=== PATIENT | female | born 1970 | race Caucasian/White ===

== ENCOUNTER 2017-05-10 16:28 | Emergency (ER) | payer MEDICAID ==
[2017-05-10 16:51] VITALS: BP 167/89
--- NOTE | 2017-05-10 17:35 | EDM.PDOC ---
ED HPI GENERAL MEDICAL PROBLEM - General Chief Complaint: General Stated Complaint: DROOLING,SLURRED SPEECH Time Seen by Provider: 05/10/17 17:16 Source of Information: Reports: Patient, RN Notes Reviewed History Limitations: Reports: No Limitations - History of Present Illness INITIAL COMMENTS - FREE TEXT/NARRATIVE: 46-year-old female presents emergency department today with complaint of 2 issues one is intermittent slurred speech, chest pain and excessive salivation with drooling out of the right side of her mouth, these issues have been going on for about 3 weeks she did try and get an appointment at the clinic today however they recommend she go to the emergency department for further evaluation , she is asymptomatic at this time Back Pain Score (Numeric/FACES): 4 - Related Data Allergies Allergy/AdvReac Type Severity Reaction Status Date / Time amoxicillin [Amoxicillin] Allergy Rash Verified 05/10/17 16:57 codeine Allergy Cannot Verified 05/10/17 16:57 Remember fluoxetine [From Prozac] Allergy Swollen Verified 05/10/17 16:57 Tongue Penicillins Allergy Rash Verified 05/10/17 16:57 Sulfa (Sulfonamide Allergy Rash Verified 05/10/17 16:57 Antibiotics) Home Meds: Home Meds ALPRAZolam [Xanax] 1 tab PO QID PRN 08/17/13 [History] ARIPiprazole [Abilify] 30 mg PO DAILY 08/17/13 [History] Levothyroxine 112 mcg PO DAILY 03/14/14 [History] Cyclobenzaprine [Flexeril] 10 mg PO TID PRN 04/20/15 [History] Temazepam [Restoril] 30 mg PO DAILY 09/06/15 [History] Acetaminophen [Tylenol Extra Strength] 2 tab PO Q6H PRN 04/05/17 [History] Albuterol [Proventil HFA] 2 inh INH Q4H PRN 04/08/17 [History] Cetirizine HCl [Zyrtec] 10 mg PO DAILY 04/08/17 [History] FLUoxetine HCl [Prozac] 40 mg PO DAILY 04/08/17 [History] NIFEdipine [Adalat cc] 1 tab PO DAILY 04/08/17 [History] Naproxen [Naprosyn] 1 tab PO BID 04/08/17 [History] Nystatin [Nystatin Crm] 15 gm TOP BID 04/08/17 [History] SUMAtriptan [Imitrex] 25 mg PO DAILY PRN 04/08/17 [History] Triamcinolone Acetonide [Kenalog 0.1% Crm] 1 strip TOP BID 04/08/17 [History] Magnesium 30 mg PO DAILY 05/10/17 [History] Past Medical History HEENT History: Reports: Cataract, Impaired Vision Cardiovascular History: Reports: Hypertension Musculoskeletal History: Reports: Other (See Below) Other Musculoskeletal History: left shoulder pain Neurological History: Reports: Migraines Psychiatric History: Reports: Anxiety, Depression Endocrine/Metabolic History: Reports: Obesity/BMI 30+ Other Dermatologic History: open wound abdomen - Past Surgical History GI Surgical History: Reports: Bariatric Procedure, Cholecystectomy Other GI Surgeries/Procedures: 09/10/15 revision Female Surgical History: Reports: Hysterectomy Social & Family History - Tobacco Use Smoking Status *Q: Never Smoker Second Hand Smoke Exposure: No - Caffeine Use Caffeine Use: Reports: Coffee, Soda - Alcohol Use Days Per Week of Alcohol Use: 1 Number of Drinks Per Day: 2 Total Drinks Per Week: 2 - Recreational Drug Use Recreational Drug Use: No ED ROS GENERAL - Review of Systems Review Of Systems: See Below Constitutional: Reports: No Symptoms HEENT: Reports: No Symptoms Respiratory: Reports: No Symptoms Cardiovascular: Reports: Chest Pain GI/Abdominal: Reports: Other (excessive salivation) : Reports: No Symptoms Musculoskeletal: Reports: No Symptoms Skin: Reports: No Symptoms Neurological: Reports: Trouble Speaking, Other (slurred speech) ED EXAM, GENERAL - Physical Exam Exam: See Below Free Text/Narrative:: General: female, not in any distress, alert and oriented x3 HEENT: head is atraumatic normocephalic, eyes pupils equal round reactive to light, sclera clear no conjunctivitis appreciated. Ears tympanic membranes clear and vaz landmarks and light reflex are present bilaterally canals are clear. Nose no septal deviation, nares are clear, no blood present. Mouth mucosa is moist and pink no erythema or exudate noted in soft palate, tongue is midline uvula is midline, dentition is intact. Neck: Supple no thyromegaly no tracheal deviation. Nodes: Cervical nodes subclavicular nodes nontender no palpable lymphadenopathy noted. Lungs: clear to auscultation bilaterally with symmetrical respirations, no adventitious noise appreciated. CV: Regular rate and rhythm S1 and S2 appreciated no murmurs rubs or gallops noted. Abdomen: Soft, nontender, no palpable masses or organomegaly appreciated, no distention no guarding bowel sounds are present, [scars ]. Neuro: Cranial nerves II through XII grossly intact, power is 5 out 5 in upper and lower extremities, can do finger to nose without difficulty no dysdiadochokinesis no difficulty with rapid alternating movements c , has adequate gait can do heel to toe, c no cerebellar dysfunction no focal neurologic deficit Skin: Warm and dry, intact Extremities: No lower extremity edema appreciated, pedal pulse is +2. Course - Vital Signs Last Recorded V/S: Last Vital Signs Temp 97.6 F 05/10/17 16:46 Pulse 78 05/10/17 16:46 Resp 16 05/10/17 16:46 BP 167/89 H 05/10/17 16:46 Pulse Ox 98 05/10/17 16:46 Departure - Departure Time of Disposition: 17:34 Disposition: Home, Self-Care 01 Condition: Good Clinical Impression: Medication side effects Qualifiers: Encounter type: initial encounter Qualified Code(s): T88.7XXA - Unspecified adverse effect of drug or medicament, initial encounter - Discharge Information Forms: ED Department Discharge Additional Instructions: please follow-up with your mental health provider for reevaluation recommend discontinuing the Xanax - Assessment/Plan Plan: Assessment Acuity = acute Site and laterality = hypersalivation, chest pain, slurred speech, all intermittent Etiology = probable side effects of Xanax Manifestations = none Location of injury = home Lab values = none Plan I did review the side effect profile with her for Xanax, I did offer her further evaluation blood work and image studies she declined she preferred follow up with her mental health provider if she is going to discontinue her Xanax until she can review her medication profile with her mental health provider Patient was in agreement with the plan all questions were answered, they were instructed to return to the emergency department or call for worsening symptoms. This note was dictated using [employer] voice recognition software please call with any questions.
== END 2017-05-10 17:52 | disposition home or self-care (01) ==
LOC: JP.ED 16:28
DX: R47.81 Slurred speech (principal); T88.7XXA Unspecified adverse effect of drug or medicament, initial encounter; I10 Essential (primary) hypertension; G43.909 Migraine, unspecified, not intractable, without status migrainosus; F41.9 Anxiety disorder, unspecified; F32.9 Major depressive disorder, single episode, unspecified; E66.9 Obesity, unspecified; Z90.49 Acquired absence of other specified parts of digestive tract; Z79.899 Other long term (current) drug therapy; Z90.710 Acquired absence of both cervix and uterus; Z98.84 Bariatric surgery status; Z98.890 Other specified postprocedural states; Z88.5 Allergy status to narcotic agent; Z88.2 Allergy status to sulfonamides; Z88.0 Allergy status to penicillin; Z88.8 Allergy status to other drugs, medicaments and biological substances
CPT/HCPCS: 99282; 99285

== ENCOUNTER 2017-07-19 18:48 | Emergency (ER) | payer MEDICAID ==
--- NOTE | 2017-07-19 20:03 | EDM.PDOC ---
ED HPI GENERAL MEDICAL PROBLEM - General Chief Complaint: Skin Complaint Stated Complaint: RASH ON BACK Time Seen by Provider: 07/19/17 19:57 Source of Information: Reports: Patient History Limitations: Reports: No Limitations - History of Present Illness INITIAL COMMENTS - FREE TEXT/NARRATIVE: Pt noted burning to back earlier today. Now has gotten worse. 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 No new stressors. Immunizations are current. Onset: Today, Sudden Onset Date: 07/19/17 Duration: Getting Worse Location: Reports: Back Quality: Reports: Burning Severity: Mild Improves with: Reports: None Worsens with: Reports: None Associated Symptoms: Reports: No Other Symptoms Back Pain Score (Numeric/FACES): 4 - Related Data Allergies Allergy/AdvReac Type Severity Reaction Status Date / Time amoxicillin [Amoxicillin] Allergy Rash Verified 07/19/17 19:38 codeine Allergy Cannot Verified 07/19/17 19:38 Remember fluoxetine [From Prozac] Allergy Swollen Verified 07/19/17 19:38 Tongue Penicillins Allergy Rash Verified 07/19/17 19:38 Sulfa (Sulfonamide Allergy Rash Verified 07/19/17 19:38 Antibiotics) Home Meds: Home Meds ALPRAZolam [Xanax] 1 tab PO QID PRN 08/17/13 [History] ARIPiprazole [Abilify] 30 mg PO DAILY 08/17/13 [History] Levothyroxine 112 mcg PO DAILY 03/14/14 [History] Cyclobenzaprine [Flexeril] 10 mg PO TID PRN 04/20/15 [History] Temazepam [Restoril] 30 mg PO DAILY 09/06/15 [History] Acetaminophen [Tylenol Extra Strength] 2 tab PO Q6H PRN 04/05/17 [History] Albuterol [Proventil HFA] 2 inh INH Q4H PRN 04/08/17 [History] Cetirizine HCl [Zyrtec] 10 mg PO DAILY 04/08/17 [History] FLUoxetine HCl [Prozac] 40 mg PO DAILY 04/08/17 [History] NIFEdipine [Adalat cc] 1 tab PO DAILY 04/08/17 [History] Naproxen [Naprosyn] 1 tab PO BID 04/08/17 [History] Nystatin [Nystatin Crm] 15 gm TOP BID 04/08/17 [History] SUMAtriptan [Imitrex] 25 mg PO DAILY PRN 04/08/17 [History] Triamcinolone Acetonide [Kenalog 0.1% Crm] 1 strip TOP BID 04/08/17 [History] Magnesium 30 mg PO DAILY 05/10/17 [History] Past Medical History HEENT History: Reports: Cataract, Impaired Vision Cardiovascular History: Reports: Hypertension Musculoskeletal History: Reports: Other (See Below) Other Musculoskeletal History: left shoulder pain Neurological History: Reports: Migraines Psychiatric History: Reports: Anxiety, Depression Endocrine/Metabolic History: Reports: Obesity/BMI 30+ Other Dermatologic History: open wound abdomen - Infectious Disease History Infectious Disease History: Reports: Chicken Pox - Past Surgical History GI Surgical History: Reports: Bariatric Procedure, Cholecystectomy Other GI Surgeries/Procedures: 09/10/15 revision Female Surgical History: Reports: Hysterectomy Social & Family History - Tobacco Use Smoking Status *Q: Never Smoker Second Hand Smoke Exposure: No - Caffeine Use Caffeine Use: Reports: Soda - Alcohol Use Days Per Week of Alcohol Use: 1 Number of Drinks Per Day: 2 Total Drinks Per Week: 2 - Recreational Drug Use Recreational Drug Use: No ED ROS GENERAL - Review of Systems Review Of Systems: See Below Constitutional: Reports: No Symptoms HEENT: Reports: No Symptoms Respiratory: Reports: No Symptoms Cardiovascular: Reports: No Symptoms GI/Abdominal: Reports: No Symptoms Musculoskeletal: Reports: Other (achiness) Skin: Reports: Rash, Urticaria Neurological: Reports: No Symptoms ED EXAM, SKIN/RASH Exam: See Below Exam Limited By: No Limitations General Appearance: Alert, WD/WN, No Apparent Distress Respiratory/Chest: No Respiratory Distress, Lungs Clear, Normal Breath Sounds, No Accessory Muscle Use, Chest Non-Tender Cardiovascular: Normal Peripheral Pulses, Regular Rate, Rhythm, No Edema, No Gallop, No JVD, No Murmur, No Rub Skin: Zoster-Like Rash (to right midback, in early stages) Location, Skin: Back Characteristics: Vesicular Associated features: Warmth, Tenderness Lymphatic: No Adenopathy Course - Vital Signs Last Recorded V/S: Last Vital Signs Temp 96.8 F 07/19/17 19:42 Pulse 75 07/19/17 19:42 Resp 16 07/19/17 19:42 BP 158/86 H 07/19/17 19:42 Pulse Ox 99 07/19/17 19:42 Departure - Departure Time of Disposition: 20:03 Disposition: Home, Self-Care 01 Condition: Good Clinical Impression: Herpes zoster Qualifiers: Herpes zoster complications: without complications Qualified Code(s): B02.9 - Zoster without complications - Discharge Information Instructions: Shingles, [id number] Referrals: Viktor Sam MD [Primary Care Provider] - Additional Instructions: Pt to take Valtrex 1gm TID x 7 days. Contact precautions discussed. Abreva prn topically. Followup if pain persists. - Problem List & Annotations (1) Herpes zoster SNOMED Code(s): 3736815 Code(s): B02.9 - ZOSTER WITHOUT COMPLICATIONS Status: Acute Priority: Low Current Visit: Yes Qualifiers: Herpes zoster complications: without complications Qualified Code(s): B02.9 - Zoster without complications
[2017-07-19] MEDS ORDERED: valACYclovir 1,000 MG Tab PO SCH (20:15)
[2017-07-19 21:30] VITALS: BP 158/86
== END 2017-07-19 20:14 | disposition home or self-care (01) ==
LOC: JP.ED 18:48
DX: B02.9 Zoster without complications (principal); I10 Essential (primary) hypertension; G43.909 Migraine, unspecified, not intractable, without status migrainosus; F41.9 Anxiety disorder, unspecified; F32.9 Major depressive disorder, single episode, unspecified; E66.9 Obesity, unspecified; Z98.84 Bariatric surgery status; Z90.49 Acquired absence of other specified parts of digestive tract; Z79.899 Other long term (current) drug therapy; Z88.1 Allergy status to other antibiotic agents; Z88.5 Allergy status to narcotic agent; Z88.0 Allergy status to penicillin; Z88.2 Allergy status to sulfonamides
CPT/HCPCS: 99283; A9270

== ENCOUNTER 2017-10-09 19:10 | Emergency (ER) | payer MEDICAID ==
[2017-10-09 19:43] VITALS: BP 150/93
[2017-10-09] MEDS ORDERED: valACYclovir 1,000 MG Tab PO STA (20:09)
--- NOTE | 2017-10-09 20:13 | EDM.PDOC ---
ED HPI GENERAL MEDICAL PROBLEM - General Chief Complaint: Skin Complaint Stated Complaint: POSSIBLE SHINGLES Time Seen by Provider: 10/09/17 20:06 Source of Information: Reports: Patient, RN Notes Reviewed History Limitations: Reports: No Limitations - History of Present Illness INITIAL COMMENTS - FREE TEXT/NARRATIVE: 47-year-old female presents emergency department day complaint of rash she has had outbreak of shingles multiple times throughout her life last was this summer this particular one started couple days ago was probably on her right shoulder Right Posterior Shoulder Pain Score (Numeric/FACES): 1 - Related Data Allergies Allergy/AdvReac Type Severity Reaction Status Date / Time amoxicillin [Amoxicillin] Allergy Rash Verified 10/09/17 19:44 codeine Allergy Cannot Verified 10/09/17 19:44 Remember fluoxetine [From Prozac] Allergy Swollen Verified 10/09/17 19:44 Tongue Penicillins Allergy Rash Verified 10/09/17 19:44 Sulfa (Sulfonamide Allergy Rash Verified 10/09/17 19:44 Antibiotics) Home Meds: Home Meds ALPRAZolam [Xanax] 1 tab PO QID PRN 08/17/13 [History] ARIPiprazole [Abilify] 30 mg PO DAILY 08/17/13 [History] Levothyroxine 112 mcg PO DAILY 03/14/14 [History] Cyclobenzaprine [Flexeril] 10 mg PO TID PRN 04/20/15 [History] Temazepam [Restoril] 30 mg PO DAILY 09/06/15 [History] Acetaminophen [Tylenol Extra Strength] 2 tab PO Q6H PRN 04/05/17 [History] Cetirizine HCl [Zyrtec] 10 mg PO DAILY 04/08/17 [History] FLUoxetine HCl [Prozac] 40 mg PO DAILY 04/08/17 [History] NIFEdipine [Adalat cc] 1 tab PO DAILY 04/08/17 [History] Naproxen [Naprosyn] 1 tab PO BID 04/08/17 [History] Nystatin [Nystatin Crm] 15 gm TOP BID 04/08/17 [History] SUMAtriptan [Imitrex] 25 mg PO DAILY PRN 04/08/17 [History] Triamcinolone Acetonide [Kenalog 0.1% Crm] 1 strip TOP BID 04/08/17 [History] Magnesium 30 mg PO DAILY 05/10/17 [History] Past Medical History HEENT History: Reports: Cataract, Impaired Vision Cardiovascular History: Reports: Hypertension Musculoskeletal History: Reports: Other (See Below) Other Musculoskeletal History: left shoulder pain Neurological History: Reports: Migraines Psychiatric History: Reports: Anxiety, Depression Endocrine/Metabolic History: Reports: Obesity/BMI 30+ Other Dermatologic History: open wound abdomen - Infectious Disease History Infectious Disease History: Reports: Chicken Pox - Past Surgical History GI Surgical History: Reports: Bariatric Procedure, Cholecystectomy Other GI Surgeries/Procedures: 09/10/15 revision Female Surgical History: Reports: Hysterectomy Social & Family History - Tobacco Use Smoking Status *Q: Former Smoker Used Tobacco, but Quit: Yes Month Tobacco Last Used: 5 years Second Hand Smoke Exposure: No - Caffeine Use Caffeine Use: Reports: Coffee, Soda - Alcohol Use Days Per Week of Alcohol Use: 1 Number of Drinks Per Day: 2 Total Drinks Per Week: 2 - Recreational Drug Use Recreational Drug Use: No ED ROS GENERAL - Review of Systems Review Of Systems: See Below Constitutional: Reports: No Symptoms Skin: Reports: Rash ED EXAM, SKIN/RASH Exam: See Below Text/Narrative:: Examination of the integument area over the right shoulder she does have several small vesicles that are erupted with open ulcers distribution is in the C5 region consistent with zoster type rash Exam Limited By: No Limitations General Appearance: Alert, WD/WN, No Apparent Distress Course - Vital Signs Last Recorded V/S: Last Vital Signs Temp 97.7 F 10/09/17 19:38 Pulse 69 10/09/17 19:38 Resp 18 10/09/17 19:38 BP 150/93 H 10/09/17 19:38 Pulse Ox 96 10/09/17 19:38 - Orders/Labs/Meds Orders: Active Orders 24 hr Category Date Time Status valACYclovir [Valtrex] Med 10/09/17 20:09 Stat 1,000 mg PO NOW STA Departure - Departure Time of Disposition: 20:12 Disposition: Home, Self-Care 01 Condition: Good Clinical Impression: Herpes zoster Qualifiers: Herpes zoster complications: without complications Qualified Code(s): B02.9 - Zoster without complications - Discharge Information Referrals: Viktor Sam MD [Primary Care Provider] - Additional Instructions: of take full course of antiviral, Please followup with your primary care provider in 5-7 days if not better, please call return to the emergency department with worsening of symptoms. - My Orders Last 24 Hours: My Active Orders 10/09/17 20:09 valACYclovir [Valtrex] 1,000 mg PO NOW STA - Assessment/Plan Last 24 Hours: My Active Orders 10/09/17 20:09 valACYclovir [Valtrex] 1,000 mg PO NOW STA Plan: Assessment Acuity = acute Site and laterality = shingles Etiology = varicella-zoster Manifestations = none Location of injury = Home Lab values = none Plan Given 1 dose Valtrex now prescription written for Valtrex thousand milligrams by mouth 3 times a day 7 days follow-up with primary care in 5-7 days if no improvement Patient was in agreement with the plan all questions were answered, they were instructed to return to the emergency department or call for worsening symptoms. This note was dictated using [employer] voice recognition software please call with any questions.
== END 2017-10-09 20:30 | disposition home or self-care (01) ==
LOC: JP.ED 19:10
DX: B02.9 Zoster without complications (principal); I10 Essential (primary) hypertension; Z87.891 Personal history of nicotine dependence; Z88.5 Allergy status to narcotic agent; Z88.1 Allergy status to other antibiotic agents; Z88.2 Allergy status to sulfonamides
CPT/HCPCS: 99283; A9270

== ENCOUNTER 2019-02-19 07:55 | Emergency (ER) | payer MEDICAID ==
[2019-02-19 08:27] VITALS: BP 124/84
--- NOTE | 2019-02-19 08:47 | EDM.PDOC ---
ED HPI GENERAL MEDICAL PROBLEM - General Chief Complaint: Fever Stated Complaint: CHEST COLD HEADACHE Time Seen by Provider: 02/19/19 08:30 Source of Information: Reports: Patient History Limitations: Reports: No Limitations - History of Present Illness Onset: Gradual (three day history) Location: Reports: Head (headache for past three days, rates pain 2/10, occas. flushing feeling. ) Quality: Reports: Ache Improves with: Reports: None Worsens with: Reports: None Associated Symptoms: Reports: Malaise (states has finished a ten day stretch of work days. ) Treatments HANDY MAN: Reports: Acetaminophen Headache Pain Score (Numeric/FACES): 3 - Related Data Allergies Allergy/AdvReac Type Severity Reaction Status Date / Time amoxicillin [Amoxicillin] Allergy Rash Verified 02/01/19 11:54 codeine Allergy Cannot Verified 02/01/19 11:54 Remember fluoxetine [From Prozac] Allergy Swollen Verified 02/01/19 11:54 Tongue Penicillins Allergy Rash Verified 02/01/19 11:54 Sulfa (Sulfonamide Allergy Rash Verified 02/01/19 11:54 Antibiotics) valacyclovir [From Valtrex] Allergy Rash Verified 02/01/19 11:54 Home Meds: Home Meds ALPRAZolam [Xanax] 1 tab PO QID PRN 08/17/13 [History] ARIPiprazole [Abilify] 20 mg PO DAILY 08/17/13 [History] Levothyroxine 112 mcg PO DAILY 03/14/14 [History] Cyclobenzaprine [Flexeril] 10 mg PO TID PRN 04/20/15 [History] Temazepam [Restoril] 30 mg PO DAILY 09/06/15 [History] Acetaminophen [Tylenol Extra Strength] 2 tab PO Q6H PRN 04/05/17 [History] Naproxen [Naprosyn] 1 tab PO BID PRN 04/08/17 [History] Nystatin [Nystatin Crm] 15 gm TOP BID PRN 04/08/17 [History] SUMAtriptan [Imitrex] 25 mg PO DAILY PRN 04/08/17 [History] Triamcinolone Acetonide [Kenalog 0.1% Crm] 1 applic TOP BID PRN 04/08/17 [ History] hydroCHLOROthiazide [Hydrochlorothiazide] 50 mg PO DAILY 10/16/18 [History] Citalopram [Citalopram HBr] 20 mg PO DAILY 11/30/18 [History] Ferrous Fumarate/Vitamin C [Vitron-C] 1 tab PO DAILY 11/30/18 [History] Gabapentin [Neurontin] 300 mg PO BID 11/30/18 [History] Naltrexone 25 mg PO BID 01/04/19 [History] Past Medical History HEENT History: Reports: Cataract, Impaired Vision Cardiovascular History: Reports: Hypertension Musculoskeletal History: Reports: Other (See Below) Other Musculoskeletal History: left shoulder pain Neurological History: Reports: Migraines Psychiatric History: Reports: Anxiety, Depression Endocrine/Metabolic History: Reports: Obesity/BMI 30+ Dermatologic History: Reports: Other (See Below) Other Dermatologic History: shingles - Infectious Disease History Infectious Disease History: Reports: Chicken Pox - Past Surgical History GI Surgical History: Reports: Bariatric Procedure, Cholecystectomy Other GI Surgeries/Procedures: 09/10/15 revision Female Surgical History: Reports: Hysterectomy Social & Family History - Tobacco Use Smoking Status *Q: Never Smoker - Caffeine Use Caffeine Use: Reports: Soda - Recreational Drug Use Recreational Drug Use: No ED ROS GENERAL - Review of Systems Review Of Systems: See Below Constitutional: Reports: No Symptoms HEENT: Reports: No Symptoms Respiratory: Reports: Other (complains of tightness of chest and pain on both inspiration and expiration) Endocrine: Reports: Fatigue (states has been tired of late, slept most of yesterday - states it was a day of catching up on sleep. ) : Reports: No Symptoms (denies changes to bowels or bladder or nausea. States urine is darker than normal, but admits to decreased fluid intake in past few days. ) Musculoskeletal: Reports: No Symptoms Skin: Reports: No Symptoms Neurological: Reports: No Symptoms, Headache (12/25, not like a mirgraine which she has had) Psychiatric: Reports: No Symptoms Hematologic/Lymphatic: Reports: No Symptoms Immunologic: Reports: Seasonal Allergy (taking Zyrtec-D as per usual this time of year) ED EXAM, GENERAL - Physical Exam Exam: See Below Exam Limited By: No Limitations General Appearance: Alert, WD/WN, No Apparent Distress, Other (seems a little flat in affect. States has been taking prescribed depression meds and following up with Gisell ([facility]IST[facility] psych in clinic) regularly and doesn't feel there are issues. ) Eye Exam: Bilateral Eye: EOMI, PERRL Ears: Normal External Exam, Normal Canal, Hearing Grossly Normal, Normal TMs Nose: Normal Inspection, Normal Mucosa, No Blood Throat/Mouth: Normal Inspection, Normal Lips, Normal Teeth, Normal Gums, Normal Oropharynx, Normal Voice, No Airway Compromise Head: Atraumatic, Normocephalic, Other Neck: Normal Inspection Respiratory/Chest: No Respiratory Distress, Lungs Clear, Normal Breath Sounds, No Accessory Muscle Use, Chest Non-Tender Cardiovascular: Regular Rate, Rhythm, No Edema, No Murmur, No Rub GI/Abdominal: Normal Bowel Sounds, Soft, Non-Tender, No Distention, No Abnormal Bruit Back Exam: Normal Inspection, Full Range of Motion Extremities: Normal Inspection, Normal Range of Motion, Non-Tender, No Pedal Edema Neurological: Alert, Oriented, Normal Cognition, No Motor/Sensory Deficits Psychiatric: Normal Mood, Other (flat affect; tired) Skin Exam: Warm, Dry, Intact, Normal Color, No Rash, Other (no flushing, no diaphoresis) Lymphatic: No Adenopathy Course - Vital Signs Last Recorded V/S: Last Vital Signs Temp 34.5 C L 02/19/19 08:18 Pulse 74 02/19/19 08:18 Resp 12 02/19/19 08:18 BP 124/84 02/19/19 08:18 Pulse Ox 100 02/19/19 08:18 - Orders/Labs/Meds Orders: CBC ordered Labs: Laboratory Tests 02/19/19 Range/Units 08:40 WBC 4.5 (4.5-11.0) K/uL RBC 4.95 (3.30-5.50) M/uL Hgb 13.8 D (12.0-15.0) g/dL Hct 40.9 (36.0-48.0) % MCV 83 (80-98) fL MCH 28 (27-31) pg MCHC 34 (32-36) % Plt Count 151 (150-400) K/uL Neut % (Auto) 69 H (36-66) % Lymph % (Auto) 11 L (24-44) % Baxter % (Auto) 12 H (2-6) % Eos % (Auto) 8 H (2-4) % Baso % (Auto) 0 (0-1) % Departure - Departure Time of Disposition: 08:59 Disposition: Home, Self-Care 01 Condition: Good Clinical Impression: Headache - Discharge Information *PRESCRIPTION DRUG MONITORING PROGRAM REVIEWED*: No *COPY OF PRESCRIPTION DRUG MONITORING REPORT IN PATIENT SOPHIE: No Instructions: General Headache Without Cause Referrals: Viktor Sam MD [Primary Care Provider] - Forms: ED Department Discharge Additional Instructions: Discussed with patient that headache probably result of viral syndrome and long stretch of work days and decreased fluid intake that she admits to. Long discussion about benefits of regular exercise and stable sleep habits and importance of adequate hydration as contributing to overall health. Patient will try to increase water intake over next few days and monitor caffeine intake to see if this contributes to headache. Asked to take her naproxen today alternating with the Tylenol to see if this will take away her headache pain. To follow up with her care provider if symptoms don't resolve or increase in next few days.
== END 2019-02-19 09:09 | disposition home or self-care (01) ==
LOC: JP.ED 07:55
DX: R51 Headache (principal); I10 Essential (primary) hypertension; F41.9 Anxiety disorder, unspecified; F32.9 Major depressive disorder, single episode, unspecified; Z88.1 Allergy status to other antibiotic agents; Z88.0 Allergy status to penicillin; Z88.2 Allergy status to sulfonamides; Z79.899 Other long term (current) drug therapy; Z88.5 Allergy status to narcotic agent
CPT/HCPCS: 36415; 85025; 99283

== ENCOUNTER 2019-02-22 17:51 | Emergency (ER) | payer MEDICAID ==
[2019-02-22 18:24] VITALS: BP 128/82
[2019-02-22] MEDS ORDERED: Iopamidol 612 MG/ML 150 ML Bottle IV SCH (18:30)
[2019-02-22] MEDS ORDERED: Sodium Chloride 0.9% 80 ML IV SCH (18:30)
[2019-02-22] MEDS ORDERED: NS + KCl 20mEq/L 1,000 ML IV SCH (18:30)
[2019-02-22] MEDS ORDERED: Ondansetron 4 MG Tab.DIS PO ONE (18:52)
[2019-02-22] MEDS ORDERED: Ketorolac 30 MG/ML SDV IVPUSH ONE (18:53)
[2019-02-22] MEDS: Sodium Chloride 0.9% 10 ML Syringe FLUSH PRN ×2 (18:55→19:03)
--- NOTE | 2019-02-22 19:23 | EDM.PDOC ---
ED HPI GENERAL MEDICAL PROBLEM - General Chief Complaint: Abdominal Pain Stated Complaint: ABDOMINAL PAIN Time Seen by Provider: 02/22/19 19:00 Source of Information: Reports: Patient, Old Records, RN History Limitations: Reports: No Limitations - History of Present Illness INITIAL COMMENTS - FREE TEXT/NARRATIVE: 48 yo female was referred from the clinic to the ER to evaluate subacute mild abdominal pain associated with elevated LFT's. She reports nausea without vomiting. Has a mild HARRIS. Shannan's complaint in the clinic was progressive fatigue over about 6 days. In the clinic LUQ tenderness was noted on exam, patient was unaware of this until her provider pushed there. The provider also noted scleral icterus which is why the LFT's were ordered. Hx of cholecystectomy about 20 yrs ago. No fever. No change in stooling. Onset: Gradual Onset Date: 02/16/19 Duration: Day(s): (6), Getting Worse Location: Reports: Generalized (fatigue) Quality: Reports: Dull (RUQ pain, only after the clinic exam, not noted before that. ) Severity: Mild Improves with: Reports: None Worsens with: Reports: Other (time) Context: Reports: Other (See HPI) Associated Symptoms: Reports: Headaches (mild now), Malaise, Nausea/Vomiting ( emesis once during the course only.). Denies: Cough, Fever/Chills, Rash, Shortness of Breath Treatments SPECIAL SERVICES DIRECTOR: Reports: Other (see below) (none) Right Upper Abdomen Pain Score (Numeric/FACES): 3 - Related Data Allergies Allergy/AdvReac Type Severity Reaction Status Date / Time amoxicillin [Amoxicillin] Allergy Rash Verified 02/22/19 18:25 codeine Allergy Cannot Verified 02/22/19 18:25 Remember fluoxetine [From Prozac] Allergy Swollen Verified 02/22/19 18:25 Tongue Penicillins Allergy Rash Verified 02/22/19 18:25 Sulfa (Sulfonamide Allergy Rash Verified 02/22/19 18:25 Antibiotics) valacyclovir [From Valtrex] Allergy Rash Verified 02/22/19 18:25 Home Meds: Home Meds ALPRAZolam [Xanax] 1 tab PO QID PRN 08/17/13 [History] ARIPiprazole [Abilify] 20 mg PO DAILY 08/17/13 [History] Levothyroxine 112 mcg PO DAILY 03/14/14 [History] Cyclobenzaprine [Flexeril] 10 mg PO TID PRN 04/20/15 [History] Temazepam [Restoril] 30 mg PO DAILY 09/06/15 [History] Acetaminophen [Tylenol Extra Strength] 2 tab PO Q6H PRN 04/05/17 [History] Naproxen [Naprosyn] 1 tab PO BID PRN 04/08/17 [History] Nystatin [Nystatin Crm] 15 gm TOP BID PRN 04/08/17 [History] SUMAtriptan [Imitrex] 25 mg PO DAILY PRN 04/08/17 [History] Triamcinolone Acetonide [Kenalog 0.1% Crm] 1 applic TOP BID PRN 04/08/17 [ History] hydroCHLOROthiazide [Hydrochlorothiazide] 50 mg PO DAILY 10/16/18 [History] Citalopram [Citalopram HBr] 20 mg PO DAILY 11/30/18 [History] Ferrous Fumarate/Vitamin C [Vitron-C] 1 tab PO DAILY 11/30/18 [History] Gabapentin [Neurontin] 300 mg PO BID 11/30/18 [History] Naltrexone 25 mg PO BID 01/04/19 [History] Past Medical History HEENT History: Reports: Cataract, Impaired Vision Cardiovascular History: Reports: Hypertension Gastrointestinal History: Reports: Cholelithiasis Musculoskeletal History: Reports: Other (See Below) Other Musculoskeletal History: left shoulder pain Neurological History: Reports: Migraines Psychiatric History: Reports: Anxiety, Depression Endocrine/Metabolic History: Reports: Obesity/BMI 30+ Dermatologic History: Reports: Other (See Below) Other Dermatologic History: shingles - Infectious Disease History Infectious Disease History: Reports: Shingles - Past Surgical History GI Surgical History: Reports: Bariatric Procedure, Cholecystectomy Other GI Surgeries/Procedures: 09/10/15 revision Female Surgical History: Reports: Hysterectomy Social & Family History - Tobacco Use Smoking Status *Q: Never Smoker - Caffeine Use Caffeine Use: Reports: Soda - Recreational Drug Use Recreational Drug Use: No ED ROS GENERAL - Review of Systems Review Of Systems: See Below Constitutional: Reports: Malaise, Fatigue. Denies: Fever, Chills HEENT: Reports: No Symptoms Respiratory: Reports: No Symptoms Cardiovascular: Reports: No Symptoms GI/Abdominal: Reports: Abdominal Pain (RUQ, mild, today only.), Nausea, Vomiting (x one). Denies: Black Stool, Bloody Stool, Diarrhea, Distension, Flatus, Hematemesis, Hematochezia, Melena : Reports: No Symptoms Musculoskeletal: Reports: No Symptoms Skin: Reports: No Symptoms Neurological: Reports: No Symptoms Psychiatric: Reports: No Symptoms ED EXAM, GI/ABD - Physical Exam Exam: See Below Exam Limited By: No Limitations General Appearance: Alert, WD/WN, No Apparent Distress, Obese, Other (Bilateral scleral icterus noted.) Eyes: Bilateral: EOMI Ears: Normal External Exam, Normal Canal, Hearing Grossly Normal, Normal TMs Nose: Normal Inspection, No Blood Throat/Mouth: Normal Inspection, Normal Lips, Normal Oropharynx, Normal Voice, No Airway Compromise Head: Atraumatic, Normocephalic Neck: Normal Inspection Respiratory/Chest: No Respiratory Distress, Lungs Clear, Normal Breath Sounds, No Accessory Muscle Use Cardiovascular: Regular Rate, Rhythm, No Edema GI/Abdominal Exam: Normal Bowel Sounds, Soft, Tender (mild RUQ tenderness). No : No Organomegaly, Distended, Guarding, Rigid, Rebound Back Exam: Normal Inspection. No: CVA Tenderness (R), CVA Tenderness (L) Extremities: Normal Inspection, Normal Range of Motion, Non-Tender, No Pedal Edema Neurological: Alert, Oriented, CN II-XII Intact, Normal Cognition, No Motor/ Sensory Deficits Psychiatric: Normal Affect, Normal Mood Skin Exam: Warm, Dry, Intact, Normal Color, No Rash Lymphatic: No Adenopathy Course - Vital Signs Text/Narrative:: Dr. Miller, [facility] Hospitalist, consulted @ . Gastroenterology @ [facility] consulted @ . Recommends transfer tonight. Last Recorded V/S: Last Vital Signs Temp 36.6 C 02/22/19 18:18 Pulse 96 02/22/19 18:18 Resp 14 02/22/19 18:18 BP 128/82 02/22/19 18:18 Pulse Ox 97 02/22/19 18:18 - Orders/Labs/Meds Orders: Active Orders 24 hr Category Date Time Status UA W/MICROSCOPIC [URIN] Stat Lab 02/22/19 18:20 Ordered Iopamidol [Isovue-300 (61%)] Med 02/22/19 18:30 Active 150 ml IV . DIRECTED NS + KCl 20mEq/L [Normal Saline with 20 mEq KCl] 1,000 Med 02/22/19 18:30 Active ml IV ASDIRECTED Sodium Chloride 0.9% [Normal Saline] 80 ml Med 02/22/19 18:30 Active IV ASDIRECTED Sodium Chloride 0.9% [Saline Flush] Med 02/22/19 18:25 Active 10 ml FLUSH ASDIRECTED PRN Medication Orders Potassium Chloride/Sodium Chloride (Normal Saline With 20 Meq Kcl) 1,000 mls @ 500 mls/hr IV ASDIRECTED ZULMA Last Admin: 02/22/19 18:44 Dose: 500 mls/hr Sodium Chloride (Normal Saline) 80 mls @ 3 mls/sec IV ASDIRECTED UZLMA Last Admin: 02/22/19 18:54 Dose: 3 mls/sec Iopamidol (Isovue-300 (61%)) 150 ml IV . DIRECTED ZULMA Last Admin: 02/22/19 18:55 Dose: 150 ml Sodium Chloride (Saline Flush) 10 ml FLUSH ASDIRECTED PRN PRN Reason: Keep Vein Open Last Admin: 02/22/19 19:03 Dose: 10 ml Admin: 02/22/19 18:55 Dose: 10 ml Meds: Medications Generic Name Dose Route Start Last Admin Trade Name Freq PRN Reason Stop Dose Admin Potassium Chloride/Sodium Chloride 1,000 mls @ 500 mls/hr 02/22/19 18:30 09/02 18:44 Normal Saline With 20 Meq Kcl IV 500 mls/hr ASDIRECTED ZULMA Administration Sodium Chloride 80 mls @ 3 mls/sec 02/22/19 18:30 02/22/19 18:54 Normal Saline IV 3 mls/sec ASDIRECTED ZULMA Administration Iopamidol 150 ml 02/22/19 18:30 02/22/19 18:55 Isovue-300 (61%) IV 150 ml . DIRECTED ZULMA Administration Sodium Chloride 10 ml 02/22/19 18:25 02/22/19 19:03 Saline Flush FLUSH 10 ml ASDIRECTED PRN Administration Keep Vein Open Discontinued Medications Generic Name Dose Route Start Last Admin Trade Name Freq PRN Reason Stop Dose Admin Ketorolac Tromethamine 15 mg 02/22/19 18:53 02/22/19 19:03 Toradol IVPUSH 02/22/19 18:54 15 mg ONETIME ONE Administration Ondansetron HCl 4 mg 02/22/19 18:52 02/22/19 19:03 Zofran Odt PO 02/22/19 18:53 4 mg ONETIME ONE Administration - Radiology Interpretation Free Text/Narrative:: CT abd/pelvis with IV contrast-intra and extra hepatic ductal dilatation. No stone seen. No other acute findings. Surgical changes from gastric bypass. CT Results Date: 02/22/19 CT Results Time: 19:45 Departure - Departure Time of Disposition: 20:10 Disposition: DC/Tfer to Acute Hospital 02 Condition: Fair Clinical Impression: Elevated LFTs, Intrahepatic bile duct dilation Fatigue Qualifiers: Fatigue type: unspecified Qualified Code(s): R53.83 - Other fatigue - Discharge Information *PRESCRIPTION DRUG MONITORING PROGRAM REVIEWED*: No *COPY OF PRESCRIPTION DRUG MONITORING REPORT IN PATIENT SOPHIE: No Referrals: Viktor Sam MD [Primary Care Provider] - Forms: ED Department Discharge Additional Instructions: Go to [facility]. NPO after midnight. - My Orders Last 24 Hours: My Active Orders 02/22/19 18:20 UA W/MICROSCOPIC [URIN] Stat 02/22/19 18:25 Sodium Chloride 0.9% [Saline Flush] 10 ml FLUSH ASDIRECTED PRN 02/22/19 18:30 Iopamidol [Isovue-300 (61%)] 150 ml IV . DIRECTED NS + KCl 20mEq/L [Normal Saline with 20 mEq KCl] 1,000 ml IV ASDIRECTED Sodium Chloride 0.9% [Normal Saline] 80 ml IV ASDIRECTED - Assessment/Plan Last 24 Hours: My Active Orders 02/22/19 18:20 UA W/MICROSCOPIC [URIN] Stat 02/22/19 18:25 Sodium Chloride 0.9% [Saline Flush] 10 ml FLUSH ASDIRECTED PRN 02/22/19 18:30 Iopamidol [Isovue-300 (61%)] 150 ml IV . DIRECTED NS + KCl 20mEq/L [Normal Saline with 20 mEq KCl] 1,000 ml IV ASDIRECTED Sodium Chloride 0.9% [Normal Saline] 80 ml IV ASDIRECTED
--- NOTE | 2019-02-22 19:26 | CRLCT ---
INDICATION: 48 year-old female. Abdominal pain. Elevated liver function tests. TECHNIQUE: Contrast-enhanced CT of the abdomen and pelvis. 150 cc nonionic Isovue-300 administered. COMPARISON: None. FINDINGS: Postsurgical change from gastric bypass. Surgically absent gallbladder. There is intra and extrahepatic biliary ductal dilatation which could be related to the postcholecystectomy state/sphincterotomy. No retained stone within the biliary tree is seen. The pancreatic duct is not dilated. No evidence for pancreatic mass or pancreatitis. Normal size spleen. Cortical lobulation of the kidneys left greater than right without hydronephrosis, stone, or solid mass. Normal caliber abdominal aorta and iliac arteries. Normal inferior vena cava. Normal appendix. No evidence for diverticular disease. Absent uterus. The urinary bladder is unremarkable. No evidence for bowel obstruction ileus and no ascites or lymphadenopathy. Thinning of the anterior abdominal wall with a small mid abdominal wall fat containing hernia. Tiny fat containing umbilical hernia. Degenerative disc disease at L5. Hypertrophic spurring of the lower thoracic spine. IMPRESSION: 1. Intra and extrahepatic biliary ductal dilatation which may reflect the post cholecystectomy state/sphincterotomy. No common bile duct stone identified. No evidence for pancreatitis or pancreatic ductal dilatation. 2. Normal appendix. No diverticular disease. Absent uterus. Postsurgical change from a gastric bypass. Please note that all CT scans at this facility use dose modulation, iterative reconstruction, and/or weight-based dosing when appropriate to reduce radiation dose to as low as reasonably achievable. Dictated by Kobi García MD @ Feb 22 2019 7:12PM Signed by Dr. Kobi García @ Feb 22 2019 7:24PM
== END 2019-02-22 20:38 ==
LOC: JP.ED 17:51
DX: K83.8 Other specified diseases of biliary tract (principal); R79.89 Other specified abnormal findings of blood chemistry; R53.83 Other fatigue; I10 Essential (primary) hypertension; F41.9 Anxiety disorder, unspecified; F32.9 Major depressive disorder, single episode, unspecified; Z79.899 Other long term (current) drug therapy; Z88.1 Allergy status to other antibiotic agents; Z88.5 Allergy status to narcotic agent
CPT/HCPCS: 74177; 81001; 96361; 96374; 99285; A9270; J1885; J3480; J7030

== ENCOUNTER 2019-05-28 15:54 | Emergency (ER) | payer MEDICAID ==
[2019-05-28 16:17] VITALS: BP 146/88; PULSE 69
--- NOTE | 2019-05-28 16:29 | EDM.PDOC ---
ED HPI GENERAL MEDICAL PROBLEM - General Chief Complaint: Skin Complaint Stated Complaint: SHINGLES Time Seen by Provider: 05/28/19 16:19 Source of Information: Reports: Patient, RN Notes Reviewed History Limitations: Reports: No Limitations - History of Present Illness INITIAL COMMENTS - FREE TEXT/NARRATIVE: 48 female presents emergency department today complaint painful rash lower back noticed yesterday that history of shingles - Related Data Allergies Allergy/AdvReac Type Severity Reaction Status Date / Time amoxicillin [Amoxicillin] Allergy Rash Verified 05/28/19 16:10 codeine Allergy Cannot Verified 05/28/19 16:10 Remember fluoxetine [From Prozac] Allergy Swollen Verified 05/28/19 16:10 Tongue Penicillins Allergy Rash Verified 05/28/19 16:10 Sulfa (Sulfonamide Allergy Rash Verified 05/28/19 16:10 Antibiotics) valacyclovir [From Valtrex] Allergy Rash Verified 05/28/19 16:10 Home Meds: Home Meds ALPRAZolam [Xanax] 1 tab PO QID PRN 08/17/13 [History] Levothyroxine 112 mcg PO DAILY 03/14/14 [History] Cyclobenzaprine [Flexeril] 10 mg PO TID PRN 04/20/15 [History] Temazepam [Restoril] 30 mg PO DAILY 09/06/15 [History] Acetaminophen [Tylenol Extra Strength] 2 tab PO Q6H PRN 04/05/17 [History] Naproxen [Naprosyn] 1 tab PO BID PRN 04/08/17 [History] Nystatin [Nystatin Crm] 15 gm TOP BID PRN 04/08/17 [History] SUMAtriptan [Imitrex] 25 mg PO DAILY PRN 04/08/17 [History] Triamcinolone Acetonide [Kenalog 0.1% Crm] 1 applic TOP BID PRN 04/08/17 [ History] hydroCHLOROthiazide [Hydrochlorothiazide] 50 mg PO DAILY 10/16/18 [History] Citalopram [Citalopram HBr] 20 mg PO DAILY 11/30/18 [History] Ferrous Fumarate/Vitamin C [Vitron-C] 1 tab PO DAILY 11/30/18 [History] Gabapentin [Neurontin] 300 mg PO BID 11/30/18 [History] Acyclovir 800 mg PO 5XDAY #35 tablet 05/28/19 [Rx] Past Medical History HEENT History: Reports: Cataract, Impaired Vision Cardiovascular History: Reports: Hypertension Gastrointestinal History: Reports: Cholelithiasis Musculoskeletal History: Reports: Other (See Below) Other Musculoskeletal History: left shoulder pain Neurological History: Reports: Migraines Psychiatric History: Reports: Anxiety, Depression Endocrine/Metabolic History: Reports: Obesity/BMI 30+ Dermatologic History: Reports: Other (See Below) Other Dermatologic History: shingles - Infectious Disease History Infectious Disease History: Reports: Shingles - Past Surgical History GI Surgical History: Reports: Bariatric Procedure, Cholecystectomy Other GI Surgeries/Procedures: 09/10/15 revision Female Surgical History: Reports: Hysterectomy Social & Family History - Tobacco Use Smoking Status *Q: Never Smoker - Caffeine Use Caffeine Use: Reports: Soda ED ROS GENERAL - Review of Systems Review Of Systems: See Below Constitutional: Reports: No Symptoms Skin: Reports: Rash, Other (Painful) ED EXAM, SKIN/RASH Exam: See Below Text/Narrative:: Examination of the back there is a small patch about size of $0.50 piece T12 region close inspection there are a few vesicles presents system varicella- zoster Exam Limited By: No Limitations General Appearance: Alert, WD/WN, No Apparent Distress Course - Vital Signs Last Recorded V/S: Last Vital Signs Temp 95.0 F L 05/28/19 16:15 Pulse 69 05/28/19 16:15 Resp 14 05/28/19 16:15 BP 146/88 H 05/28/19 16:15 Pulse Ox 99 05/28/19 16:15 Departure - Departure Time of Disposition: 16:28 Disposition: Home, Self-Care 01 Condition: Fair Clinical Impression: Shingles Qualifiers: Herpes zoster complications: without complications Qualified Code(s): B02.9 - Zoster without complications - Discharge Information Prescriptions: Acyclovir 800 mg PO 5XDAY #35 tablet Referrals: Viktor Sam MD [Primary Care Provider] - Additional Instructions: Take full course of acyclovir, your medications have been faxed to [facility], Please followup with your primary care provider in 5-7 days if not better, please call return to the emergency department with worsening of symptoms. - Assessment/Plan Plan: Assessment Acuity = acute Site and laterality = varicella-zoster exacerbation Etiology = chickenpox Manifestations = none Location of injury = Home Lab values = none Plan Take full course of acyclovir 5 times a day 7 days follow-up primary care in 5- 7 days no improvement This note was dictated using [employer] voice recognition software please call with any questions on syntax or grammar.
== END 2019-05-28 16:35 | disposition home or self-care (01) ==
LOC: JP.ED 15:54
DX: B02.9 Zoster without complications (principal); Z88.1 Allergy status to other antibiotic agents; Z88.2 Allergy status to sulfonamides; Z79.899 Other long term (current) drug therapy
CPT/HCPCS: 99282; 99283

== ENCOUNTER 2019-06-11 07:52 | Emergency (ER) | payer MEDICAID ==
[2019-06-11 08:09] VITALS: BP 134/83; PULSE 78
--- NOTE | 2019-06-11 08:26 | EDM.PDOC ---
ED HPI GENERAL MEDICAL PROBLEM - General Chief Complaint: Skin Complaint Stated Complaint: SHINGLES Time Seen by Provider: 06/11/19 08:15 Source of Information: Reports: Patient History Limitations: Reports: No Limitations - History of Present Illness INITIAL COMMENTS - FREE TEXT/NARRATIVE: 48-year-old female who is been having recurring outbreak of irritating somewhat painful blisters over the right back just lateral to the spine over the past several months. It responds to acyclovir. She does have an appointment with her primary provider in 2 days to discuss possible vaccination or other treatment. Onset: Sudden (Another outbreak over the last 24 hours) Associated Symptoms: Reports: Malaise (Slight malaise) - Related Data Allergies Allergy/AdvReac Type Severity Reaction Status Date / Time amoxicillin [Amoxicillin] Allergy Rash Verified 06/11/19 08:07 codeine Allergy Cannot Verified 06/11/19 08:07 Remember fluoxetine [From Prozac] Allergy Swollen Verified 06/11/19 08:07 Tongue Penicillins Allergy Rash Verified 06/11/19 08:07 Sulfa (Sulfonamide Allergy Rash Verified 06/11/19 08:07 Antibiotics) valacyclovir [From Valtrex] Allergy Rash Verified 06/11/19 08:07 Home Meds: Home Meds ALPRAZolam [Xanax] 1 tab PO QID PRN 08/17/13 [History] Levothyroxine 112 mcg PO DAILY 03/14/14 [History] Cyclobenzaprine [Flexeril] 10 mg PO TID PRN 04/20/15 [History] Temazepam [Restoril] 30 mg PO DAILY 09/06/15 [History] Acetaminophen [Tylenol Extra Strength] 2 tab PO Q6H PRN 04/05/17 [History] Naproxen [Naprosyn] 1 tab PO BID PRN 04/08/17 [History] Nystatin [Nystatin Crm] 15 gm TOP BID PRN 04/08/17 [History] SUMAtriptan [Imitrex] 25 mg PO DAILY PRN 04/08/17 [History] Triamcinolone Acetonide [Kenalog 0.1% Crm] 1 applic TOP BID PRN 04/08/17 [ History] hydroCHLOROthiazide [Hydrochlorothiazide] 50 mg PO DAILY 10/16/18 [History] Citalopram [Citalopram HBr] 20 mg PO DAILY 11/30/18 [History] Ferrous Fumarate/Vitamin C [Vitron-C] 1 tab PO DAILY 11/30/18 [History] Gabapentin [Neurontin] 600 mg PO TID 11/30/18 [History] Acyclovir 800 mg PO 5XDAY #35 tablet 05/28/19 [Rx] Past Medical History HEENT History: Reports: Cataract, Impaired Vision Cardiovascular History: Reports: Hypertension Gastrointestinal History: Reports: Cholelithiasis Musculoskeletal History: Reports: Other (See Below) Other Musculoskeletal History: left shoulder pain Neurological History: Reports: Migraines Psychiatric History: Reports: Anxiety, Depression Endocrine/Metabolic History: Reports: Obesity/BMI 30+ Dermatologic History: Reports: Other (See Below) Other Dermatologic History: shingles - Infectious Disease History Infectious Disease History: Reports: Shingles - Past Surgical History GI Surgical History: Reports: Bariatric Procedure, Cholecystectomy Other GI Surgeries/Procedures: 09/10/15 revision Female Surgical History: Reports: Hysterectomy Social & Family History - Tobacco Use Smoking Status *Q: Never Smoker - Caffeine Use Caffeine Use: Reports: Soda ED ROS GENERAL - Review of Systems Review Of Systems: See Below Constitutional: Denies: Fever Respiratory: Denies: Shortness of Breath, Cough GI/Abdominal: Denies: Nausea, Vomiting Neurological: Denies: Headache ED EXAM, SKIN/RASH Exam: See Below Exam Limited By: No Limitations General Appearance: Alert, No Apparent Distress Respiratory/Chest: No Respiratory Distress Skin: Warm, Dry, Other (Patient has a 4 x 4 cm area of inflammation just to the right of the spine at the lower ribs in the mid back. There is slight blister production. There are no lesions laterally around the chest.) Course - Vital Signs Last Recorded V/S: Last Vital Signs Temp 95.4 F 06/11/19 08:11 Pulse 78 06/11/19 08:11 Resp 13 06/11/19 08:11 BP 134/83 06/11/19 08:11 Pulse Ox 99 06/11/19 08:11 - Re-Assessments/Exams Free Text/Narrative Re-Assessment/Exam: 06/11/19 08:23 This patient may be having a recurring outbreak of herpes simplex and not actually shingles, however it is the same type of process and should respond to acyclovir. She was put on 400 mg 5 times a day for the next 4 days which she should take her through to her primary providers visit who can give her more if needed. Departure - Departure Time of Disposition: 08:38 Disposition: Home, Self-Care 01 Clinical Impression: Herpes simplex - Discharge Information Instructions: Tiffanie, [id number] Referrals: PCP,None [Primary Care Provider] - Forms: ED Department Discharge Care Plan Goals: Take acyclovir 5 times a day for the next 4 days, and discuss any further treatment with your primary provider on Wednesday as scheduled.
== END 2019-06-11 08:39 | disposition home or self-care (01) ==
LOC: JP.ED 07:52
DX: B00.9 Herpesviral infection, unspecified (principal); I10 Essential (primary) hypertension; F41.9 Anxiety disorder, unspecified; F32.9 Major depressive disorder, single episode, unspecified; Z79.899 Other long term (current) drug therapy; Z88.1 Allergy status to other antibiotic agents; Z88.5 Allergy status to narcotic agent
CPT/HCPCS: 99283

== ENCOUNTER 2019-07-08 19:21 | Emergency (ER) | payer MEDICAID ==
[2019-07-08 20:40] VITALS: BP 137/92
--- NOTE | 2019-07-08 21:01 | EDM.PDOC ---
ED HPI GENERAL MEDICAL PROBLEM - General Chief Complaint: ENT Problem Stated Complaint: SOARS IN MOUTH Time Seen by Provider: 07/08/19 20:45 Source of Information: Reports: Patient, Old Records History Limitations: Reports: No Limitations - History of Present Illness INITIAL COMMENTS - FREE TEXT/NARRATIVE: 48 yo female presents with sores on her the lateral edges of her tongue for the past 4 days. These sores are painful. Was to the clinic and was given an Rx for a once a day cephalosporin that is not helping so far. No other current concerns. 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: Other (see below) (cephalosporin) - Related Data Allergies Allergy/AdvReac Type Severity Reaction Status Date / Time amoxicillin [Amoxicillin] Allergy Rash Verified 06/11/19 08:07 codeine Allergy Cannot Verified 06/11/19 08:07 Remember fluoxetine [From Prozac] Allergy Swollen Verified 06/11/19 08:07 Tongue Penicillins Allergy Rash Verified 06/11/19 08:07 Sulfa (Sulfonamide Allergy Rash Verified 06/11/19 08:07 Antibiotics) valacyclovir [From Valtrex] Allergy Rash Verified 06/11/19 08:07 Home Meds: Home Meds ALPRAZolam [Xanax] 1 tab PO QID PRN 08/17/13 [History] Levothyroxine 112 mcg PO DAILY 03/14/14 [History] Cyclobenzaprine [Flexeril] 10 mg PO TID PRN 04/20/15 [History] Temazepam [Restoril] 30 mg PO DAILY 09/06/15 [History] Acetaminophen [Tylenol Extra Strength] 2 tab PO Q6H PRN 04/05/17 [History] Naproxen [Naprosyn] 1 tab PO BID PRN 04/08/17 [History] Nystatin [Nystatin Crm] 15 gm TOP BID PRN 04/08/17 [History] SUMAtriptan [Imitrex] 25 mg PO DAILY PRN 04/08/17 [History] Triamcinolone Acetonide [Kenalog 0.1% Crm] 1 applic TOP BID PRN 04/08/17 [ History] hydroCHLOROthiazide [Hydrochlorothiazide] 50 mg PO DAILY 10/16/18 [History] Citalopram [Citalopram HBr] 20 mg PO DAILY 11/30/18 [History] Ferrous Fumarate/Vitamin C [Vitron-C] 1 tab PO DAILY 11/30/18 [History] Gabapentin [Neurontin] 600 mg PO TID 11/30/18 [History] Acyclovir 800 mg PO 5XDAY #35 tablet 05/28/19 [Rx] Past Medical History HEENT History: Reports: Cataract, Impaired Vision Cardiovascular History: Reports: Hypertension Gastrointestinal History: Reports: Cholelithiasis Musculoskeletal History: Reports: Other (See Below) Other Musculoskeletal History: left shoulder pain Neurological History: Reports: Migraines Psychiatric History: Reports: Anxiety, Depression Endocrine/Metabolic History: Reports: Obesity/BMI 30+ Dermatologic History: Reports: Other (See Below) Other Dermatologic History: shingles - Infectious Disease History Infectious Disease History: Reports: Shingles - Past Surgical History GI Surgical History: Reports: Bariatric Procedure, Cholecystectomy Other GI Surgeries/Procedures: 09/10/15 revision Female Surgical History: Reports: Hysterectomy Social & Family History - Caffeine Use Caffeine Use: Reports: Soda ED ROS ENT - Review of Systems Review Of Systems: See Below Constitutional: Reports: No Symptoms HEENT: Reports: Other (sores on tongue) Respiratory: Reports: No Symptoms Skin: Reports: No Symptoms ED EXAM, ENT - Physical Exam Exam: See Below Exam Limited By: No Limitations General Appearance: Alert, WD/WN, No Apparent Distress Eye Exam: Bilateral Eye: Normal Inspection Ears: Normal External Exam, Normal Canal, Hearing Grossly Normal Nose: Normal Inspection, No Blood Mouth/Throat: Normal Lips, Normal Oropharynx, Other (canker sores on lateral edges of tongue x 2). No: Bleeding, Dental Pain, Lip Swelling, Lip Ulcers, Muffled Voice, Throat Pain, Throat Swelling, Tongue Swelling, Tonsillar Erythema , Tonsillar Exudates, Tonsillar Swelling, Uvular Deviation, Uvular Edema Head: Atraumatic, Normocephalic Neck: Normal Inspection Course - Vital Signs Last Recorded V/S: Last Vital Signs Temp 35.9 C 07/08/19 20:39 Pulse 75 07/08/19 20:39 Resp 16 07/08/19 20:39 BP 137/92 H 07/08/19 20:39 Pulse Ox 97 07/08/19 20:39 Departure - Departure Time of Disposition: 20:59 Disposition: Home, Self-Care 01 Condition: Good Clinical Impression: Canker sores oral - Discharge Information *PRESCRIPTION DRUG MONITORING PROGRAM REVIEWED*: No *COPY OF PRESCRIPTION DRUG MONITORING REPORT IN PATIENT SOPHIE: No Instructions: Canker Sores Referrals: Viktor Sam MD [Primary Care Provider] - Additional Instructions: Take ibuprofen and/or acetaminophen as needed for pain relief. Swish with water with some(10% added peroxide) several times/day. Finish your antibiotic. May use Biotin as well. Clinic follow up as needed.
== END 2019-07-08 21:18 | disposition home or self-care (01) ==
LOC: JP.ED 19:21
DX: K12.0 Recurrent oral aphthae (principal); I10 Essential (primary) hypertension; F41.9 Anxiety disorder, unspecified; F32.9 Major depressive disorder, single episode, unspecified; G43.909 Migraine, unspecified, not intractable, without status migrainosus; Z88.1 Allergy status to other antibiotic agents; Z88.8 Allergy status to other drugs, medicaments and biological substances; Z88.5 Allergy status to narcotic agent; Z88.0 Allergy status to penicillin; Z88.2 Allergy status to sulfonamides; Z79.899 Other long term (current) drug therapy
CPT/HCPCS: 99282

== ENCOUNTER 2019-09-10 18:26 | Emergency (ER) | payer MEDICAID ==
--- NOTE | 2019-09-10 18:47 | EDM.PDOC ---
ED HPI GENERAL MEDICAL PROBLEM - General Chief Complaint: Skin Complaint Stated Complaint: RED SASHA ON LEG NOT AN ACCIDENT Time Seen by Provider: 09/10/19 19:03 Source of Information: Reports: Patient History Limitations: Reports: No Limitations - History of Present Illness INITIAL COMMENTS - FREE TEXT/NARRATIVE: 49 years old female patient presented with chief complaint of bruises over the right thigh area. Noted this evening. She cannot recall any trauma or injury. No falls. Mild pain. Denies any bleeding anywhere. Denies any chest pain shortness breath. No cough or fever. Denies any abdominal pain diarrhea or constipation. Denies any urinary symptom. Right Upper Leg Pain Score (Numeric/FACES): 4 - Related Data Allergies Allergy/AdvReac Type Severity Reaction Status Date / Time amoxicillin [Amoxicillin] Allergy Rash Verified 09/10/19 18:41 codeine Allergy Cannot Verified 09/10/19 18:41 Remember fluoxetine [From Prozac] Allergy Swollen Verified 09/10/19 18:41 Tongue Penicillins Allergy Rash Verified 09/10/19 18:41 Sulfa (Sulfonamide Allergy Rash Verified 09/10/19 18:41 Antibiotics) valacyclovir [From Valtrex] Allergy Rash Verified 09/10/19 18:41 Home Meds: Home Meds ALPRAZolam [Xanax] 1 tab PO QID PRN 08/17/13 [History] Levothyroxine 100 mcg PO DAILY 03/14/14 [History] Temazepam [Restoril] 30 mg PO DAILY 09/06/15 [History] Acetaminophen [Tylenol Extra Strength] 2 tab PO Q6H PRN 04/05/17 [History] Naproxen [Naprosyn] 1 tab PO BID PRN 04/08/17 [History] Citalopram [Citalopram HBr] 20 mg PO DAILY 11/30/18 [History] Ferrous Fumarate/Vitamin C [Vitron-C] 1 tab PO DAILY 11/30/18 [History] Past Medical History HEENT History: Reports: Cataract, Impaired Vision Cardiovascular History: Reports: Hypertension Gastrointestinal History: Reports: Cholelithiasis Musculoskeletal History: Reports: Other (See Below) Other Musculoskeletal History: left shoulder pain Neurological History: Reports: Migraines Psychiatric History: Reports: Anxiety, Depression Endocrine/Metabolic History: Reports: Obesity/BMI 30+ Dermatologic History: Reports: Other (See Below) Other Dermatologic History: shingles - Infectious Disease History Infectious Disease History: Reports: Shingles - Past Surgical History HEENT Surgical History: Reports: None Cardiovascular Surgical History: Reports: None Respiratory Surgical History: Reports: None GI Surgical History: Reports: Bariatric Procedure, Cholecystectomy Other GI Surgeries/Procedures: 09/10/15 revision Female Surgical History: Reports: Hysterectomy Endocrine Surgical History: Reports: None Neurological Surgical History: Reports: None Social & Family History - Caffeine Use Caffeine Use: Reports: Soda ED ROS GENERAL - Review of Systems Review Of Systems: ROS reveals no pertinent complaints other than HPI. ED EXAM, SKIN/RASH Exam: See Below Exam Limited By: No Limitations General Appearance: Alert, WD/WN, No Apparent Distress Ears: Normal External Exam, Normal Canal, Hearing Grossly Normal, Normal TMs Nose: Normal Inspection, Normal Mucosa, No Blood Head: Atraumatic, Normocephalic Neck: Normal Inspection, Supple, Non-Tender, Full Range of Motion Respiratory/Chest: No Respiratory Distress, Lungs Clear, Normal Breath Sounds, No Accessory Muscle Use, Chest Non-Tender Cardiovascular: Normal Peripheral Pulses, Regular Rate, Rhythm, No Edema, No Gallop, No JVD, No Murmur, No Rub GI/Abdominal: Normal Bowel Sounds, Soft, Non-Tender, No Organomegaly, No Distention, No Abnormal Bruit, No Mass Extremities: Normal Inspection, Normal Range of Motion, No Pedal Edema, Normal Capillary Refill, Other (Bruises all the lateral side of the right thigh area. Mild tenderness. No erythema. No swelling.). No: Fermin's Sign Neurological: Alert, Oriented, CN II-XII Intact, Normal Cognition, Normal Gait, Normal Reflexes, No Motor/Sensory Deficits Course - Vital Signs Last Recorded V/S: Last Vital Signs Temp 36.4 C 09/10/19 18:48 Pulse 64 09/10/19 18:48 Resp 14 09/10/19 18:48 BP 150/98 H 09/10/19 18:48 Pulse Ox 96 09/10/19 18:48 - Orders/Labs/Meds Orders: Active Orders 24 hr Category Date Time Status Cardiac Monitoring [RC] .As Directed Care 09/10/19 18:55 Inactive VL Duplex Lwr Ext Veins Ltd Rt [US] Stat Exams 09/10/19 18:52 Taken Labs: Laboratory Tests 1009/10/19 09/10/19 Range/Units 19:06 19:06 19:06 WBC 4.3 L (4.5-11.0) K/uL RBC 4.71 (3.30-5.50) M/uL Hgb 13.2 (12.0-15.0) g/dL Hct 41.8 (36.0-48.0) % MCV 89 (80-98) fL MCH 28 (27-31) pg MCHC 32 (32-36) % Plt Count 192 (150-400) K/uL Neut % (Auto) 61 (36-66) % Lymph % (Auto) 29 (24-44) % Darke % (Auto) 10 H (2-6) % Eos % (Auto) 0 L (2-4) % Baso % (Auto) 0 (0-1) % PT 10.7 (9.5-12.0) sec INR 0.99 (0.80-1.20) APTT 27.5 (27.0-36.0) sec D-Dimer, Quantitative < 100 (0.0-400.0) ng/mL Sodium (140-148) mmol/L Potassium (3.6-5.2) mmol/L Chloride (100-108) mmol/L Carbon Dioxide (21-32) mmol/L Anion Gap (5.0-14.0) mmol/L BUN (7-18) mg/dL Creatinine (0.6-1.0) mg/dL Est Cr Clr Drug Dosing mL/min Estimated GFR (MDRD) (>60) Glucose (74-106) mg/dL Calcium (8.5-10.1) mg/dL 09/10/19 Range/Units 19:06 WBC (4.5-11.0) K/uL RBC (3.30-5.50) M/uL Hgb (12.0-15.0) g/dL Hct (36.0-48.0) % MCV (80-98) fL MCH (27-31) pg MCHC (32-36) % Plt Count (150-400) K/uL Neut % (Auto) (36-66) % Lymph % (Auto) (24-44) % Darke % (Auto) (2-6) % Eos % (Auto) (2-4) % Baso % (Auto) (0-1) % PT (9.5-12.0) sec INR (0.80-1.20) APTT (27.0-36.0) sec D-Dimer, Quantitative (0.0-400.0) ng/mL Sodium 140 (140-148) mmol/L Potassium 4.6 (3.6-5.2) mmol/L Chloride 106 (100-108) mmol/L Carbon Dioxide 27 (21-32) mmol/L Anion Gap 7.3 (5.0-14.0) mmol/L BUN 17 (7-18) mg/dL Creatinine 1.0 (0.6-1.0) mg/dL Est Cr Clr Drug Dosing 59.41 mL/min Estimated GFR (MDRD) 59 L (>60) Glucose 70 L (74-106) mg/dL Calcium 8.7 (8.5-10.1) mg/dL - Radiology Interpretation Free Text/Narrative:: Patient was seen and examined shortly after arrival. Stable. Lab and imaging reviewed with the patient. No significant acute abnormalities. Blood sugar is 70. Patient was given some juice. She doesn't feel any dizziness. Normal INR, PTT. Negative DVT study. No hematoma. At this point this most likely bruises of the skin she might have bumped into something. No obvious sign of bleeding disorder at this point. Patient was reassured. Advised to use some ice, Tylenol as needed. Close follow-up with PCP. Come back for any worsening symptom. Patient agrees with the plan. Stable for discharge. Departure - Departure Time of Disposition: 20:13 Disposition: Home, Self-Care 01 Condition: Good Clinical Impression: Bruise - Discharge Information *PRESCRIPTION DRUG MONITORING PROGRAM REVIEWED*: Not Applicable *COPY OF PRESCRIPTION DRUG MONITORING REPORT IN PATIENT SOPHIE: Not Applicable Referrals: Viktor Sam MD [Primary Care Provider] - Forms: ED Department Discharge Additional Instructions: Advised to use some ice, Tylenol as needed. Close follow-up with PCP i in one week for evaluation. Come back for any worsening symptom - My Orders Last 24 Hours: My Active Orders 09/10/19 18:52 VL Duplex Lwr Ext Veins Ltd Rt [US] Stat 09/10/19 18:55 Cardiac Monitoring [RC] .As Directed - Assessment/Plan Last 24 Hours: My Active Orders 09/10/19 18:52 VL Duplex Lwr Ext Veins Ltd Rt [US] Stat 09/10/19 18:55 Cardiac Monitoring [RC] .As Directed Plan: Advised to use some ice, Tylenol as needed. Close follow-up with PCP i in one week for evaluation. Come back for any worsening symptom
[2019-09-10 18:50] VITALS: BP 150/98; PULSE 64
--- NOTE | 2019-09-10 20:32 | CRLUS ---
HISTORY: Right leg pain. Ecchymoses. TECHNIQUE: Ultrasound of the right lower extremity deep veins using vaz-scale, color Doppler, and spectral Doppler. COMPARISON: None. FINDINGS: Right: Common femoral, femoral, and popliteal veins are patent and compressible with normal response to augmentation. Deep femoral vein is patent and compressible. Posterior tibial and peroneal veins are patent and compressible. Greater saphenous vein is patent and compressible at the junction with the femoral vein. - Left: Common femoral vein is patent and compressible with normal response to augmentation. IMPRESSION: No right lower extremity DVT. Dictated by Forrest Vázquez MD @ Sep 10 2019 8:28PM Signed by Dr. Forrest Vázquez @ Sep 10 2019 8:31PM
== END 2019-09-10 20:29 | disposition home or self-care (01) ==
LOC: JP.ED 18:26
DX: S70.11XA Contusion of right thigh, initial encounter (principal); F41.9 Anxiety disorder, unspecified; F32.9 Major depressive disorder, single episode, unspecified; E66.9 Obesity, unspecified; Z68.38 Body mass index [BMI] 38.0-38.9, adult; Z79.899 Other long term (current) drug therapy; Z88.0 Allergy status to penicillin; Z88.5 Allergy status to narcotic agent; Z88.2 Allergy status to sulfonamides; Z88.8 Allergy status to other drugs, medicaments and biological substances; X58.XXXA Exposure to other specified factors, initial encounter
CPT/HCPCS: 36415; 80048; 85025; 85379; 85610; 85730; 93971-RT; 99284-25

== ENCOUNTER 2020-10-15 09:11 | Day surgery (SDC) | payer MEDICAID ==
[2020-10-15] MEDS ORDERED: Cyanocobalamin (Vitamin B12) 1,000 MCG/ML SDV IM ONE (10:00)
[2020-10-15] MEDS ORDERED: Glycopyrrolate 0.2 MG/ML 2 ML SDV IVPUSH ONE (10:00)
[2020-10-15] MEDS ORDERED: Lactated Ringers 1,000 ML IV ONE (10:00)
[2020-10-15] MEDS ORDERED: fentaNYL 100 MCG/2 ML SDV ONE (10:53)
[2020-10-15] MEDS ORDERED: Midazolam 1 MG/ML 2 ML SDV ONE (10:53)
[2020-10-15] MEDS ORDERED: Propofol 200 MG/20 ML SDV ONE (10:53)
[2020-10-15] MEDS ORDERED: MVI, Adult with Vitamin K 10 ML, Thiamine 200 MG, Zinc/Copper/Manganese/Selenium 1 ML i... IV ONE ×4 (11:00)
[2020-10-15 14:40] VITALS: BP 108/66; PULSE 78
--- NOTE | 2020-10-21 12:56 | OR ---
DATE OF PROCEDURE: 10/15/2020 SURGEON: Tiago Perez MD PREOPERATIVE DIAGNOSIS: Upper abdominal pain. POSTOPERATIVE DIAGNOSIS: Upper abdominal pain with otherwise normal upper gastrointestinal endoscopy status post Itzel-en-Y gastric bypass. OPERATIVE PROCEDURE: Upper gastrointestinal endoscopy. ANESTHESIA: IV sedation. INDICATION FOR PROCEDURE: A 50-year-old female presenting with some ongoing upper abdominal pain along with some bilious vomiting. A CT scan was obtained which did show an incisional hernia located in the right upper quadrant area, which may be contributing to some of her discomfort in that region. The plan is to proceed with upper GI endoscopy with biopsies and/or dilation as indicated. Potential risks including bleeding and perforation were discussed, and the patient wishes to proceed. DETAILS OF PROCEDURE: The patient was taken to the operating room and placed in a left lateral decubitus position. IV sedation was administered, after which the upper GI endoscope was passed orally through the length of the esophagus into the gastric pouch and from there through the gastrojejunostomy roughly 20 cm into the Itzel limb. Overall, no abnormalities were noted with there being no areas of a significant inflammation, stricturing, or other problems. Scope was then withdrawn, the above findings reconfirmed, and the procedure then concluded. Given the patient's history of bilious vomiting, she probably has a partial small bowel obstruction and we will see her back in the clinic on Wednesday to discuss treatment options which would likely include limited laparotomy, lysis of adhesions, and revision of the jejunojejunostomy along with repair of the incisional hernia. Tiago Perez MD /[id number]
== END 2020-10-15 14:42 | disposition home or self-care (01) ==
LOC: JP.SDS 09:11
PROVIDERS: ATTEND Surgery
DX: R10.9 Unspecified abdominal pain (principal); I10 Essential (primary) hypertension; Z01.812 Encounter for preprocedural laboratory examination; Z20.828 Contact with and (suspected) exposure to other viral communicable diseases; Z98.84 Bariatric surgery status
CPT/HCPCS: J2250; J2704; J3010; J3411; J3420; J3490; J7120; U0002

== ENCOUNTER 2020-10-22 07:16 | Inpatient (IN) | payer MEDICAID ==
[~2020-10-22 07:16] MED LIST: Bupivacaine 0.5% 50 ML MDV ONE; Dexamethasone 4 MG/ML SDV ONE; Glycopyrrolate 0.2 MG/ML 5 ML MDV ONE; Lidocaine 1% with EPINEPHrine 1:100,000 50 ML MDV ONE; Meropenem 500 MG SDV ONE; Neostigmine Methylsulfate 1 MG/ML 5 ML Syringe ONE; Ondansetron 4 MG/2 ML SDV ONE; Propofol 200 MG/20 ML SDV ONE; Rocuronium 50 MG/5 ML Vial ONE; Succinylcholine 200 MG/10 ML MDV ONE; fentaNYL 250 MCG/5 ML SDV ONE
[2020-10-22] MEDS ORDERED: Acetaminophen 500 MG Tab PO ONE (07:30)
[2020-10-22] MEDS ORDERED: Gabapentin 300 MG Cap PO ONE (07:30)
[2020-10-22] MEDS ORDERED: Scopolamine 1.5 MG Transdermal Patch TOP SCH (08:00)
[2020-10-22] MEDS ORDERED: Naloxone 0.4 MG/ML SDV IVPUSH PRN (08:00)
[2020-10-22] MEDS ORDERED: HYDROmorphone/Normal Saline 15 MG/30 ML PCA IV PRN (08:00)
[2020-10-22] MEDS ORDERED: Albuterol/Ipratropium 3.0-0.5 MG/3 ML Neb Soln NEB ONE (08:00)
[2020-10-22] MEDS ORDERED: Dextrose 5%-Lactated Ringers 1,000 ML IV SCH (08:15)
[2020-10-22] MEDS ORDERED: Naloxone 0.4 MG/ML SDV IV PRN (09:00)
[2020-10-22] MEDS ORDERED: Magnesium Sulfate 3.3 GM in Sodium Chloride 0.9% 100 ML IV SCH (09:30)
[2020-10-22] MEDS ORDERED: Ketamine 500 MG/5 ML MDV IV SCH (09:30)
[2020-10-22] MEDS ORDERED: Ketamine 50 MG in Sodium Chloride 0.9% 49.5 ML IV SCH (09:30)
[2020-10-22] MEDS: cefOXitin 2 GM in Sodium Chloride 0.9% 50 ML IV ONE ×2 (09:36→18:36)
[2020-10-22] MEDS ORDERED: fentaNYL 250 MCG/5 ML SDV ONE (09:56)
[2020-10-22] MEDS ORDERED: hydrOXYzine HCL 100 MG/2 ML SDV IM ONE (11:49)
[2020-10-22] MEDS ORDERED: Cyclobenzaprine 10 MG Tab PO PRN (12:48)
[2020-10-22] MEDS ORDERED: Ondansetron 4 MG/2 ML SDV IVPUSH PRN (13:00)
[2020-10-22] MEDS ORDERED: Acetaminophen 500 MG Tab PO PRN (13:00)
[2020-10-22] MEDS ORDERED: Metoclopramide 10 MG/2 ML SDV IVPUSH PRN (13:00)
[2020-10-22] MEDS ORDERED: Pantoprazole 40 MG Vial IVPUSH SCH ×2 (13:00→17:00)
[2020-10-22] MEDS ORDERED: Labetalol 20 MG/4 ML Syringe IVPUSH PRN (13:00)
[2020-10-22] MEDS ORDERED: Calcium Gluconate 10% 1 GM/10 ML SDV IVPUSH PRN (13:00)
[2020-10-22] MEDS ORDERED: diphenhydrAMINE 50 MG/ML SDV IVPUSH PRN (13:00)
[2020-10-22] MEDS ORDERED: Albuterol/Ipratropium 3.0-0.5 MG/3 ML Neb Soln INH PRN (13:00)
[2020-10-22] MEDS ORDERED: hydrOXYzine HCL 100 MG/2 ML SDV IM PRN (13:00)
[2020-10-22] MEDS ORDERED: ALPRAZolam 0.5 MG Tab PO PRN (13:03)
[2020-10-22] MEDS: Sodium Ferric Gluconate Cmplex 250 MG in Sodium Chloride 0.9% 100 ML IV SCH (13:46)
[2020-10-22] MEDS: Albuterol/Ipratropium 3.0-0.5 MG/3 ML Neb Soln INH SCH ×2 (14:28→20:44)
[2020-10-22] MEDS: Acetaminophen 500 MG Tab PO SCH ×2 (15:26→23:42)
[2020-10-22] MEDS: MVI, Adult with Vitamin K 10 ML, Thiamine 200 MG, Zinc/Copper/Manganese/Selenium 1 ML i... IV SCH ×8 (15:41→18:09)
[2020-10-22] MEDS ORDERED: Benzocaine/Cetylpyridinium/Menthol Lozenge MUCMEM PRN (16:29)
[2020-10-22] MEDS: Vitamin A 100,000 Units/2 ML SDV IM SCH (16:30)
[2020-10-22] MEDS: cefOXitin 2 GM in Sodium Chloride 0.9% 50 ML IV SCH ×2 (16:41→22:48)
[2020-10-22] MEDS: Cyanocobalamin (Vitamin B12) 1,000 MCG/ML SDV IM SCH (18:41)
[2020-10-22] MEDS: Heparin Sodium 5,000 Units/ML Vial SUBCUT SCH (20:43)
[2020-10-22] MEDS: Montelukast 10 MG Tab PO SCH (20:45)
[2020-10-22] MEDS: Gabapentin 300 MG Cap PO SCH (20:45)
[2020-10-22] MEDS: Dextrose 5%-Lactated Ringers 1,000 ML IV SCH (22:03)
[2020-10-23] MEDS ORDERED: Dextrose 5%-Lactated Ringers 1,000 ML IV SCH (04:00)
[2020-10-23] MEDS: Dextrose 5%-Lactated Ringers 1,000 ML IV SCH (04:30)
[2020-10-23] MEDS: cefOXitin 2 GM in Sodium Chloride 0.9% 50 ML IV SCH ×3 (05:00→17:09)
[2020-10-23] MEDS ORDERED: Iopamidol 612 MG/ML 50 ML SDV PO STA (05:39)
[2020-10-23] MEDS: Albuterol/Ipratropium 3.0-0.5 MG/3 ML Neb Soln INH SCH ×4 (07:09→21:13)
[2020-10-23] MEDS: Levothyroxine 100 MCG Tab PO SCH (07:40)
[2020-10-23] MEDS: Heparin Sodium 5,000 Units/ML Vial SUBCUT SCH ×2 (07:40→20:01)
[2020-10-23] MEDS: Acetaminophen 500 MG Tab PO SCH ×2 (07:45→16:17)
[2020-10-23] MEDS: HYDROmorphone 2 MG Tab PO PRN ×4 (07:58→21:14)
--- NOTE | 2020-10-23 09:05 | CR ---
UGI Limited HISTORY: Postbariatric surgery FINDINGS: Patient swallowed water-soluble contrast. Upright views of the abdomen show no evidence of extravasation or obstruction. IMPRESSION: Status post bariatric surgery No extravasation or obstruction seen
[2020-10-23] MEDS: SCOPOLAMINE PATCH CHECK TOP SCH (09:06)
[2020-10-23] MEDS: Citalopram 20 MG Tab PO SCH (09:06)
[2020-10-23] MEDS: Gabapentin 300 MG Cap PO SCH ×2 (09:06→21:14)
[2020-10-23] MEDS: Celecoxib 200 MG Cap PO SCH ×2 (09:06→21:14)
--- NOTE | 2020-10-23 12:21 | PN ---
DATE OF SERVICE: 10/23/2020 SUBJECTIVE: Shannan is postoperative day #1. She has been up, ambulating. Pain has been controlled with the REHABILITATION TECH. Oral intake is 2490. Output is 2425. Her upper GI this morning was normal. REVIEW OF SYSTEMS: Remainder of review of systems negative for any pertinent positives and negatives. OBJECTIVE: GENERAL: Shannan is a pleasant 50-year-old female. She is alert and orientated. VITAL SIGNS: TPR is 97.6, 74, 16, blood pressure 110/57. HEENT: Negative. NECK: Supple. HEART: Regular rate and rhythm. LUNGS: Clear. ABDOMEN: Dressings dry and intact. Abdominal binder is on. EXTREMITIES: Without peripheral edema. ASSESSMENT: Exploratory laparotomy with lysis of adhesions. 1. Small bowel resection. 2. Repair of incarcerated incisional hernia. 3. Placement of Vicryl mesh. POSTOPERATIVE DIAGNOSES: 1. Partial small bowel obstruction at the junction of the previous jejunojejunostomy and incarcerated incisional hernia. 2. Date of procedure: 10/22/2020. Surgeon: Tiago Perez MD. PLAN: 1. Discontinue REHABILITATION TECH and continuous pulse ox. 2. Discontinue Quick catheter. 3. Step 3 gastric bypass diet. 4. Decrease IV to 40 mL/h. 5. Dilaudid 2 mg 1 to 2 every 4 hours p.r.n. pain. 6. Continue use of incentive spirometer. 7. We will evaluate p.r.n. or in a.m. Gabriela Moreland PA-C /[id number]
[2020-10-23] MEDS: Sodium Ferric Gluconate Cmplex 250 MG in Sodium Chloride 0.9% 100 ML IV SCH (12:59)
[2020-10-23] MEDS: Pantoprazole 40 MG Delayed-Release Granules 1 Packet PO SCH (16:17)
[2020-10-23] MEDS: Cyanocobalamin (Vitamin B12) 1,000 MCG/ML SDV IM SCH (16:29)
[2020-10-23] MEDS: Vitamin A 100,000 Units/2 ML SDV IM SCH (16:29)
[2020-10-23] MEDS: MVI, Adult with Vitamin K 10 ML, Thiamine 200 MG, Zinc/Copper/Manganese/Selenium 1 ML i... IV SCH ×4 (17:05)
[2020-10-23] MEDS: Montelukast 10 MG Tab PO SCH (21:14)
[2020-10-24] MEDS: Acetaminophen 500 MG Tab PO SCH ×3 (00:59→16:57)
[2020-10-24] MEDS: HYDROmorphone 2 MG Tab PO PRN ×4 (03:14→21:50)
[2020-10-24] MEDS: Albuterol/Ipratropium 3.0-0.5 MG/3 ML Neb Soln INH SCH ×4 (07:03→21:45)
[2020-10-24] MEDS: Levothyroxine 100 MCG Tab PO SCH (07:38)
[2020-10-24] MEDS: Heparin Sodium 5,000 Units/ML Vial SUBCUT SCH ×2 (07:38→19:31)
[2020-10-24] MEDS: Gabapentin 300 MG Cap PO SCH ×2 (08:51→21:47)
[2020-10-24] MEDS: Citalopram 20 MG Tab PO SCH (08:51)
[2020-10-24] MEDS: Bisacodyl 5 MG Tab PO SCH ×2 (08:51→21:47)
[2020-10-24] MEDS: Celecoxib 200 MG Cap PO SCH ×2 (08:51→21:47)
[2020-10-24] MEDS: Docusate Sodium 100 MG Cap PO SCH ×2 (08:51→21:47)
[2020-10-24] MEDS: Magnesium Hydroxide 400 MG/5 ML Susp 30 ML Cup PO SCH ×2 (08:52→21:45)
[2020-10-24] MEDS: SCOPOLAMINE PATCH CHECK TOP SCH (08:52)
--- NOTE | 2020-10-24 12:02 | PN ---
DATE OF SERVICE: 10/24/2020 SUBJECTIVE: Shannan is postoperative day 2. Her pain has been well managed. She has been up ambulating. Vital signs stable. She is not passing any flatus yet. Remainder of review of systems negative for any pertinent positives or negatives. OBJECTIVE: GENERAL: Shannan Hyde is a pleasant 50-year-old female. VITAL SIGNS: TPR is 96.5, 67, 16. Blood pressure 92/64. HEENT: Negative. NECK: Supple. HEART: Regular rate and rhythm. LUNGS: Clear. ABDOMEN: Aquacel dressing dry and intact. Abdominal binder is on. EXTREMITIES: Without peripheral edema. ASSESSMENT: 1. Exploratory laparotomy with lysis of adhesions, small bowel resection. 2. Repair of incarcerated incisional hernia. 3. Placement of Vicryl mesh. POSTOPERATIVE DIAGNOSES: Partial small bowel obstruction at the junction of the previous jejunojejunostomy and incarcerated incisional hernia. Date of procedure: 10/22/2020. Surgeon: Tiago Perez MD. PLAN: 1. Saline lock IV, if it infiltrates discontinue it. 2. Colace 100 mg b.i.d. p.o. 3. Dulcolax 10 mg b.i.d. p.o. 4. Milk of magnesia 30 mL b.i.d. 5. Continue use of incentive spirometer. 6. We will evaluate p.r.n. or in a.m. Gabriela Moreland PA-C /[id number]
[2020-10-24] MEDS: Pantoprazole 40 MG Delayed-Release Granules 1 Packet PO SCH (16:57)
[2020-10-24] MEDS: Cyanocobalamin (Vitamin B12) 1,000 MCG/ML SDV IM SCH (17:27)
[2020-10-24] MEDS: Vitamin A 100,000 Units/2 ML SDV IM SCH (17:27)
[2020-10-24] MEDS: Montelukast 10 MG Tab PO SCH (21:47)
[2020-10-25] MEDS: Acetaminophen 500 MG Tab PO SCH ×2 (01:50→07:57)
[2020-10-25] MEDS: HYDROmorphone 2 MG Tab PO PRN ×2 (03:23→07:57)
[2020-10-25] MEDS: Albuterol/Ipratropium 3.0-0.5 MG/3 ML Neb Soln INH SCH ×2 (07:10→10:44)
[2020-10-25 07:21] VITALS: BP 101/52; PULSE 64
[2020-10-25] MEDS: Levothyroxine 100 MCG Tab PO SCH (07:57)
[2020-10-25] MEDS: Heparin Sodium 5,000 Units/ML Vial SUBCUT SCH (07:57)
[2020-10-25] MEDS: Gabapentin 300 MG Cap PO SCH (09:18)
[2020-10-25] MEDS: Docusate Sodium 100 MG Cap PO SCH (09:18)
[2020-10-25] MEDS: Celecoxib 200 MG Cap PO SCH (09:19)
[2020-10-25] MEDS: Magnesium Hydroxide 400 MG/5 ML Susp 30 ML Cup PO SCH (09:19)
[2020-10-25] MEDS: Citalopram 20 MG Tab PO SCH (09:19)
[2020-10-25] MEDS: Bisacodyl 5 MG Tab PO SCH (09:19)
--- NOTE | 2020-10-25 13:00 | DISCH ---
ADMISSION DIAGNOSES: 1. Abdominal pain and incisional hernia. 2. Status post Itzel-en-Y gastric bypass surgery, unspecified surgical malabsorption. 3. B12 deficiency. 4. Vitamin D deficiency. 5. Hypertension. 6. Depression. 7. Anxiety. DISCHARGE DIAGNOSES: 1. Exploratory laparotomy with lysis of adhesions and small bowel resection. 2. Repair of incarcerated incisional hernia. 3. Placement of Vicryl mesh. POSTOPERATIVE DIAGNOSES: 1. Partial small bowel obstruction at the junction of the previous jejunostomy. 2. Incarcerated incisional hernia. Date of service of procedure, 10/22/2020. Surgeon: Tiago Perez MD. HISTORY: Shannan Hyde is a pleasant 50-year-old female with postprandial abdominal pain and incisional hernia. After preoperative evaluation and discussion of possible risks and possible complications, she wished to proceed with surgical procedure. HOSPITAL COURSE: Shannan had her surgery on 10/22/2020. She had no operative complications. On postoperative day #1, her Quick was discontinued. IV was decreased. She continued with the REAL ESTATE SITE ANALYST and was started on Step 3 gastric bypass diet. On postoperative day 2, she was given bowel stimulation, changed to oral pain medication. Her activity was good. She was up ambulating. Vital signs were stable, and she was able to be discharged to home without any complications on 10/25/2020. PHYSICAL EXAMINATION: GENERAL: Shannan Hyde is a pleasant 50-year-old female, height is 5 feet 4 inches, weight is 246 pounds. BMI is 42.2. TPR is 96.7, 64, 16; blood pressure 101/52. HEENT: Negative. NECK: Supple. HEART: Regular rate and rhythm. LUNGS: Clear. ABDOMEN: Aquacel dressing is removed. Lisandro intact. EXTREMITIES: Without peripheral edema. DISPOSITION: Discharged to home. CONDITION: Stable and improving. FOLLOWUP APPOINTMENT: With Gabriela Moreland PA-C, on 11/04/2020 at 9:15 a.m. HOME MEDICATIONS: Dilaudid 2 mg every 6 hours p.r.n. pain, #28; Celebrex 200 mg b.i.d., #28. She is to resume all of her home medications including her vitamins. DIET: Step 3 gastric bypass diet. Drink 8 to 10 glasses of water a day. ACTIVITY: No lifting greater than 10 pounds for 6 weeks. OTHER ACTIVITY: Walk at least 6 times daily inside your home. Driving: Do not drive for 1 week or within 6 hours of taking the Dilaudid. May shower. Keep operative site clean and dry. Take off Aquacel dressing in 3 days. Wear abdominal binder for 6 weeks and then as tolerated. Notify provider if any fever, increased pain, swelling, redness, drainage, nausea, or vomiting. Use incentive spirometer 10 times every hour while awake for 1 week. /[id number]
--- NOTE | 2020-10-29 10:40 | OR ---
DATE OF PROCEDURE: 10/22/2020 SURGEON: Tiago Perez MD PREOPERATIVE DIAGNOSIS: Partial small bowel obstruction. POSTOPERATIVE DIAGNOSES: 1. Partial small bowel obstruction at junction of previous jejunojejunostomy. 2. Incarcerated incisional hernia. OPERATIVE PROCEDURES: Exploratory laparotomy with lysis of adhesions: 1. Small bowel resection (36313). 2. Repair of incarcerated incisional hernia (54996). 3. Placement of Vicryl mesh to limit adhesion formation between pelvic and abdominal jameson and underlying viscera (21684). ANESTHESIA: General. DYE WEIGHER: Gabriela Moreland PA-C INDICATIONS FOR PROCEDURE: This 50-year-old presenting with postprandial, crampy abdominal pain and some bloating and felt to most likely be having a partial small bowel obstruction with previous gastric bypass. Plan is to proceed with a limited laparotomy with lysis of adhesions and/or small bowel resection as indicated. Potential risks of the procedure including bleeding, infection, leaks from various GI tract closures, problems with recurrent bowel obstruction, and persistent symptoms postoperatively were reviewed, and the patient wishes to proceed. DETAILS OF PROCEDURE: The patient was taken to the operating room. After general endotracheal anesthesia was induced, a Quick catheter was inserted, and the abdomen prepped and draped. A midline incision from the umbilicus roughly a handsbreadth toward the xiphoid was made and carried down through the full-thickness abdominal wall. Upon entering the peritoneal cavity, some scattered adhesions were taken down, and at that point, the small bowel was inspected. The present biliopancreatic limb contained in the previous jejunojejunostomy site and this appeared to be where the partial obstruction was occurring as the biliopancreatic limb leading up to that point was markedly dilated. At this point, after lysis of adhesions, decision was made to resect proximal and distal to the area of concern. The small bowel was divided with BEATRIZ imelda as was the underlying mesentery. GI tract continuity reconstituted with internal firing of the Endo-BEATRIZ 60 mm stapler, followed by a 30 mm stapler, and the common opening closed with a purple load. The angles anastomosed. The mesenteric defect approximated with some 3-0 Vicryl stitch, and the remainder of the small bowel was then run. No additional abnormalities were noted. There was some issue that we might be able to make bowel limbs somewhat more malabsorptive to improve some weight. At this point, the patient's Itzel limb was noted to be 175 cm and the common limb 125 cm. It was felt this would be the limit to which we would want to reduce the amount of alimentary limb in total. Given this, the abdomen was irrigated with antibiotic-containing saline solution. The entrance to the abdomen and trocar site again was noted in the midline and these contents were excised. Vicryl mesh was then placed over the omentum and the fistula taken down toward the pelvis and underneath the incision to limit recurrent adhesion formation for which the bilateral transversus abdominis plane blocks were placed. The incision was then closed with a running #2 Vicryl stitch, which included repair of the hernia, and subcutaneous tissue with 2 layers of 3-0 and 4-0 Vicryl stitch and imelda for the skin. Dressing was applied. The patient was taken to the recovery room in satisfactory condition. Physician store assistant, Gabriela Moreland, played an essential role in assisting in this case, helping to position the patient, retract structures as needed, as well as suturing and cutting sutures when indicated. Her presence improved patient safety and decreased operative time. Tiago Perez MD /[id number]
== END 2020-10-25 10:55 | disposition home or self-care (01) | DRG 330 ==
LOC: JP.SDSSCHI 07:16 → JP.SDS 07:16 → JP.MS 11:20 → EDSTATUS 15:25
PROVIDERS: ADMIT Surgery; ATTEND Surgery
PROC: 0DB80ZZ Excision of Small Intestine, Open Approach (ICD-10-PCS; principal; 2020-10-22)
PROC: 0WQF0ZZ Repair Abdominal Wall, Open Approach (ICD-10-PCS; principal; 2020-10-22)
PROC: 3E0M05Z Introduction of Adhesion Barrier into Peritoneal Cavity, Open Approach (ICD-10-PCS; principal; 2020-10-22)
PROC: 0DN80ZZ Release Small Intestine, Open Approach (ICD-10-PCS; principal; 2020-10-22)
DX: K95.89 Other complications of other bariatric procedure (principal); K90.9 Intestinal malabsorption, unspecified; K56.51 Intestinal adhesions [bands], with partial obstruction; K43.2 Incisional hernia without obstruction or gangrene; E53.8 Deficiency of other specified B group vitamins; E55.9 Vitamin D deficiency, unspecified; I10 Essential (primary) hypertension; F32.9 Major depressive disorder, single episode, unspecified; F41.9 Anxiety disorder, unspecified; Z98.84 Bariatric surgery status; Y83.8 Other surgical procedures as the cause of abnormal reaction of the patient, or of later complication, without mention of misadventure at the time of the procedure
CPT/HCPCS: 74240; 74240-26; 88302; 88307; 93005; 93010; 94640; 94762; A9270-GY; C1781; C9113; J0171; J0330; J0694; J1100; J1170; J1644; J2020; J2185; J2405; J2704; J2710; J2795; J2916; J3010; J3410; J3411; J3420; J3475; J3490; J7030; J7050; J7121; J7620-GY; Q9967

== ENCOUNTER 2021-04-14 11:04 | Emergency (ER) | payer MEDICAID, OTHER ==
[2021-04-14 11:42] VITALS: BP 137/79; PULSE 79
--- NOTE | 2021-04-14 11:42 | EDM.PDOC ---
ED HPI GENERAL MEDICAL PROBLEM - General Chief Complaint: Abdominal Pain Stated Complaint: HERNIA OUT Time Seen by Provider: 04/14/21 11:55 Source of Information: Reports: Patient History Limitations: Reports: No Limitations - History of Present Illness INITIAL COMMENTS - FREE TEXT/NARRATIVE: This is a 50-year-old female history of multiple prior ventral hernias who presents with concerns of possible recurrent hernia. She was at work today when she picked up a heavy box full change, she noticed a pop in her abdomen and a bulge above her umbilicus. She feels that this is more prominent when she is standing upright. She has some mild discomfort in the area. Initially some nausea that improved. No vomiting. Otherwise feeling well. Upper Abdomen Pain Score (Numeric/FACES): 7 - Related Data Allergies Allergy/AdvReac Type Severity Reaction Status Date / Time amoxicillin [Amoxicillin] Allergy Rash Verified 04/14/21 11:54 codeine Allergy Cannot Verified 04/14/21 11:54 Remember fluoxetine [From Prozac] Allergy Swollen Verified 04/14/21 11:54 Tongue Penicillins Allergy Rash Verified 04/14/21 11:54 Sulfa (Sulfonamide Allergy Rash Verified 04/14/21 11:54 Antibiotics) valacyclovir [From Valtrex] Allergy Rash Verified 04/14/21 11:54 Home Meds: Home Meds ALPRAZolam [Xanax] 1 mg PO BID PRN 08/17/13 [History] Levothyroxine 100 mcg PO DAILY 03/14/14 [History] Citalopram [Citalopram HBr] 20 mg PO DAILY 11/30/18 [History] Albuterol Sulfate [Proair Hfa] 1 - 2 puff IH Q4H PRN 09/24/20 [History] Calcium Citrate/Vitamin D3 [Calcium Citrate + D] 1 each PO BID 09/24/20 [History] Cholecalciferol (Vitamin D3) [Vitamin D] 50,000 unit PO MOWEFR 09/24/20 [History] Cyanocobalamin (Vitamin B-12) [B-12] 1,000 mcg PO DAILY 09/24/20 [History] Eszopiclone [Lunesta] 2 mg PO Q48H 09/24/20 [History] Eszopiclone [Lunesta] 3 mg PO Q48H 09/24/20 [History] Gabapentin [Neurontin] 600 mg PO DAILY 09/24/20 [History] Iron,Carbonyl/Ascorbic Acid [Vitron-C Tablet] 1 each PO DAILY 09/24/20 [History] Montelukast [Singulair] 10 mg PO DAILY PRN 09/24/20 [History] Multivitamin [Multi-Vitamin Daily] 1 each PO DAILY 09/24/20 [History] Vitamin A 8,000 unit PO DAILY 09/24/20 [History] Vitamin B Complex [B Complex] 1 each PO DAILY 09/24/20 [History] hydrOXYzine HCL [hydrOXYzine] 25 mg PO BID PRN 09/24/20 [History] tiZANidine HCl [Zanaflex] 4 mg PO Q8H PRN 09/24/20 [History] Metoclopramide HCl 10 mg PO QIDACANDBED 10/15/20 [History] Pantoprazole [ProTONIX] 40 mg PO DAILY 10/15/20 [History] Ergocalciferol (Vitamin D2) [Vitamin D2] 50,000 unit PO .QMWF 10/18/20 [History] polyethylene glycoL 3350 [Miralax] 1 scoop PO BID 10/18/20 [History] Acetaminophen [Tylenol Extra Strength] 1,000 mg PO Q8H tablet 10/25/20 [Rx] Celecoxib [CeleBREX] 200 mg PO BID #28 cap 10/25/20 [Rx] ARIPiprazole [Abilify] 15 mg PO DAILY 04/14/21 [History] Past Medical History HEENT History: Reports: Allergic Rhinitis, Impaired Vision Cardiovascular History: Reports: Hypertension Gastrointestinal History: Reports: Cholelithiasis, Chronic Constipation, GERD, Hiatal Hernia Genitourinary History: Reports: None 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: Reports: Polycystic Ovaries Musculoskeletal History: Reports: Other (See Below) Other Musculoskeletal History: HX left shoulder pain Neurological History: Reports: Migraines Psychiatric History: Reports: Anxiety, Depression Endocrine/Metabolic History: Reports: Hypothyroidism, Obesity/BMI 30+ Hematologic History: Reports: B12 Deficiency Dermatologic History: Reports: Other (See Below) Other Dermatologic History: shingles - Infectious Disease History Infectious Disease History: Reports: Chicken Pox, Shingles - Past Surgical History HEENT Surgical History: Reports: None Cardiovascular Surgical History: Reports: None Respiratory Surgical History: Reports: None GI Surgical History: Reports: Bariatric Procedure, Cholecystectomy, Colonoscopy, EGD, Other (See Below) Other GI Surgeries/Procedures: 09/10/15 revision, bile duct surgery Female Surgical History: Reports: Hysterectomy, Salpingo-Oophorectomy Endocrine Surgical History: Reports: None Neurological Surgical History: Reports: None Musculoskeletal Surgical History: Reports: None Social & Family History - Caffeine Use Caffeine Use: Reports: Soda ED ROS GENERAL - Review of Systems Review Of Systems: See Below Constitutional: Reports: No Symptoms HEENT: Reports: No Symptoms Respiratory: Reports: No Symptoms Cardiovascular: Reports: No Symptoms Endocrine: Reports: No Symptoms GI/Abdominal: Reports: Abdominal Pain : Reports: No Symptoms Musculoskeletal: Reports: No Symptoms Skin: Reports: No Symptoms Neurological: Reports: No Symptoms Psychiatric: Reports: No Symptoms Hematologic/Lymphatic: Reports: No Symptoms Immunologic: Reports: No Symptoms ED EXAM, GI/ABD - Physical Exam Exam: See Below Exam Limited By: No Limitations General Appearance: Alert, No Apparent Distress Ears: Normal External Exam Nose: Normal Inspection Throat/Mouth: Normal Inspection Head: Atraumatic, Normocephalic Respiratory/Chest: No Respiratory Distress Cardiovascular: Regular Rate, Rhythm GI/Abdominal Exam: Other (Large incision from prior laparotomy, there is an approximately 4 cm x 4 cm incisional hernia on the left side of this, it is soft and easily reducible.) Back Exam: Normal Inspection Extremities: Normal Inspection Neurological: Alert, Oriented Psychiatric: Normal Affect, Normal Mood Skin Exam: Warm, Dry Course - Vital Signs Last Recorded V/S: Last Vital Signs Temp 35.9 C L 04/14/21 12:03 Pulse 79 04/14/21 12:03 Resp 16 04/14/21 12:03 BP 137/79 04/14/21 12:03 Pulse Ox 99 04/14/21 12:03 - Orders/Labs/Meds Meds: Medications Discontinued Medications Generic Name Dose Route Start Last Admin Trade Name Isabel PRN Reason Stop Dose Admin Ondansetron HCl 4 mg 04/14/21 11:52 04/14/21 12:06 Ondansetron 4 Mg Tab.Dis PO 04/14/21 11:53 4 mg ONETIME ONE Administration - Re-Assessments/Exams Free Text/Narrative Re-Assessment/Exam: 50-year-old presents with concerns of new incisional hernia. She has no symptoms of obstruction or strangulation. Her hernia is easily reducible. I reduced her hernia, she then ambulated around the department, pain-free and without any concerning symptoms. I think she is safe for discharge, placed referral to surgeon's clinic for follow-up. 04/14/21 12:53 Departure - Departure Time of Disposition: 12:38 Disposition: Home, Self-Care 01 Clinical Impression: Ventral hernia Qualifiers: Obstruction and gangrene presence: without obstruction or gangrene Qualified Code(s): K43.9 - Ventral hernia without obstruction or gangrene - Discharge Information *PRESCRIPTION DRUG MONITORING PROGRAM REVIEWED*: No *COPY OF PRESCRIPTION DRUG MONITORING REPORT IN PATIENT SOPHIE: No Instructions: Hernia, Adult Referrals: Viktor Sam MD [Primary Care Provider] - Forms: ED Department Discharge Additional Instructions: Your exam today was reassuring as we are able to reduce your hernia (place it back in). We will place a referral for Dr. Perez's office to reach out to you for follow- up. If you develop recurrent abdominal pain, nausea and vomiting, or other symptoms that feels similar to when you had bowel obstruction please return to the emergency department. Thank you for trusting us to care for you today. Sepsis Event Note (ED) - Focused Exam Vital Signs: Vital Signs Temp Pulse Resp BP Pulse Ox 04/14/21 12:03 35.9 C L 79 16 137/79 99 04/14/21 11:40 35.9 C L 79 16 137/79 99
[2021-04-14] MEDS ORDERED: Ondansetron 4 MG Tab.DIS PO ONE (11:52)
== END 2021-04-14 13:03 | disposition home or self-care (01) ==
LOC: JP.ED 11:04
DX: K43.9 Ventral hernia without obstruction or gangrene (principal); I10 Essential (primary) hypertension; E03.9 Hypothyroidism, unspecified; K21.9 Gastro-esophageal reflux disease without esophagitis; E66.9 Obesity, unspecified; Z68.41 Body mass index [BMI] 40.0-44.9, adult; Z88.0 Allergy status to penicillin; Z88.5 Allergy status to narcotic agent; Z88.8 Allergy status to other drugs, medicaments and biological substances; Z88.2 Allergy status to sulfonamides
CPT/HCPCS: 99283; A9270

== ENCOUNTER 2021-05-23 06:49 | Emergency (ER) | payer OTHER ==
[2021-05-23 07:12] VITALS: BP 122/71; PULSE 72
--- NOTE | 2021-05-23 07:59 | EDM.PDOC ---
ED HPI GENERAL MEDICAL PROBLEM - General Chief Complaint: Abdominal Pain Stated Complaint: RIGHT ABDOMEN PAIN Time Seen by Provider: 05/23/21 07:40 Source of Information: Reports: Patient History Limitations: Reports: No Limitations - History of Present Illness INITIAL COMMENTS - FREE TEXT/NARRATIVE: 50-year-old female who has a known internal hernia, scheduled for surgery on of next week has been having increasing pain over the past several days. No nausea or vomiting. No fevers or chills, bowels are moving. She went to work this morning but was too uncomfortable so came to the emergency room. She actually came to the emergency room last night but they were so busy she left. Onset: Gradual (Pain for months, gradual worsening over the past 3 days) Location: Reports: Abdomen (Upper abdomen, especially the left side) Abdomen Pain Score (Numeric/FACES): 8 - Related Data Allergies Allergy/AdvReac Type Severity Reaction Status Date / Time amoxicillin [Amoxicillin] Allergy Rash Verified 05/23/21 07:17 codeine Allergy Cannot Verified 05/23/21 07:17 Remember fluoxetine [From Prozac] Allergy Swollen Verified 05/23/21 07:17 Tongue Penicillins Allergy Rash Verified 05/23/21 07:17 Sulfa (Sulfonamide Allergy Rash Verified 05/23/21 07:17 Antibiotics) valacyclovir [From Valtrex] Allergy Rash Verified 05/23/21 07:17 Home Meds: Home Meds ALPRAZolam [Xanax] 1 mg PO BID PRN 08/17/13 [History] Levothyroxine 100 mcg PO DAILY 03/14/14 [History] Citalopram [Citalopram HBr] 20 mg PO DAILY 11/30/18 [History] Albuterol Sulfate [Proair Hfa] 1 - 2 puff IH Q4H PRN 09/24/20 [History] Calcium Citrate/Vitamin D3 [Calcium Citrate + D] 1 each PO BID 09/24/20 [History] Cholecalciferol (Vitamin D3) [Vitamin D] 50,000 unit PO MOWEFR 09/24/20 [History] Cyanocobalamin (Vitamin B-12) [B-12] 1,000 mcg PO DAILY 09/24/20 [History] Gabapentin [Neurontin] 600 mg PO DAILY 09/24/20 [History] Iron,Carbonyl/Ascorbic Acid [Vitron-C Tablet] 1 each PO DAILY 09/24/20 [History] Montelukast [Singulair] 10 mg PO DAILY PRN 09/24/20 [History] Multivitamin [Multi-Vitamin Daily] 1 each PO DAILY 09/24/20 [History] Vitamin A 8,000 unit PO DAILY 09/24/20 [History] Vitamin B Complex [B Complex] 1 each PO DAILY 09/24/20 [History] hydrOXYzine HCL [hydrOXYzine] 25 mg PO BID PRN 09/24/20 [History] Metoclopramide HCl 10 mg PO QIDACANDBED 10/15/20 [History] polyethylene glycoL 3350 [Miralax] 1 scoop PO BID 10/18/20 [History] Acetaminophen [Tylenol Extra Strength] 1,000 mg PO Q8H tablet 10/25/20 [Rx] ARIPiprazole [Abilify] 15 mg PO DAILY 04/14/21 [History] Cyclobenzaprine [Flexeril] 10 mg PO TID PRN 05/20/21 [History] Fexofenadine/Pseudoephedrine [Whitney-D 24 Hour Tablet] 1 each PO DAILY 05/20/21 [History] Temazepam 30 mg PO BEDTIME PRN 05/20/21 [History] estradioL [Estrace Vaginal] 1 applic VAG BEDTIME 05/20/21 [History] Omeprazole 20 mg PO BID 05/23/21 [History] Past Medical History HEENT History: Reports: Allergic Rhinitis, Impaired Vision Cardiovascular History: Reports: Hypertension Gastrointestinal History: Reports: Cholelithiasis, Chronic Constipation, GERD, Hiatal Hernia Genitourinary History: Reports: None 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 REP History: Reports: Polycystic Ovaries Musculoskeletal History: Reports: Other (See Below) Other Musculoskeletal History: HX left shoulder pain Neurological History: Reports: Migraines Psychiatric History: Reports: Anxiety, Depression Endocrine/Metabolic History: Reports: Hypothyroidism, Obesity/BMI 30+ Hematologic History: Reports: B12 Deficiency Dermatologic History: Reports: Other (See Below) Other Dermatologic History: shingles - Infectious Disease History Infectious Disease History: Reports: Chicken Pox, Shingles - Past Surgical History HEENT Surgical History: Reports: None Cardiovascular Surgical History: Reports: None Respiratory Surgical History: Reports: None GI Surgical History: Reports: Bariatric Procedure, Cholecystectomy, Colonoscopy, EGD, Hernia, Abdominal, Other (See Below) Other GI Surgeries/Procedures: Hernia repair and abdomenal repairs Female Surgical History: Reports: Hysterectomy, Salpingo-Oophorectomy Endocrine Surgical History: Reports: None Neurological Surgical History: Reports: None Musculoskeletal Surgical History: Reports: None Social & Family History - Tobacco Use Tobacco Use Status *Q: Never Tobacco User Second Hand Smoke Exposure: Yes - Caffeine Use Caffeine Use: Reports: Coffee, Soda - Alcohol Use Days Per Week of Alcohol Use: 0 - Recreational Drug Use Recreational Drug Use: No ED ROS GENERAL - Review of Systems Review Of Systems: See Below Constitutional: Reports: Malaise. Denies: Fever, Chills Respiratory: Denies: Shortness of Breath Cardiovascular: Denies: Chest Pain GI/Abdominal: Reports: Abdominal Pain, Nausea. Denies: Constipation, Diarrhea, Vomiting : Reports: No Symptoms Skin: Reports: No Symptoms Neurological: Reports: No Symptoms. Denies: Headache Psychiatric: Reports: No Symptoms ED EXAM, GI/ABD - Physical Exam Exam: See Below Exam Limited By: No Limitations General Appearance: Alert, No Apparent Distress, Other (Looks uncomfortable but not distressed) Eyes: Bilateral: Normal Appearance (No jaundice) Throat/Mouth: Normal Inspection (Normal hydration) Head: Atraumatic Respiratory/Chest: No Respiratory Distress, Lungs Clear Cardiovascular: Regular Rate, Rhythm GI/Abdominal Exam: Normal Bowel Sounds, Soft, Other (Some tenderness to palpation across the upper abdomen but no focal guarding or rebound) Extremities: No: Pedal Edema Neurological: Alert, Oriented Psychiatric: Normal Affect, Normal Mood Skin Exam: Warm, Dry Course - Vital Signs Last Recorded V/S: Last Vital Signs Temp 97.3 F 05/23/21 07:24 Pulse 72 05/23/21 07:24 Resp 16 05/23/21 07:24 BP 122/71 05/23/21 07:24 Pulse Ox 98 05/23/21 07:24 - Orders/Labs/Meds Labs: Laboratory Tests 05/23/21 05/23/21 05/23/21 Range/Units 07:58 07:58 07:58 WBC 3.9 L (4.5-11.0) K/uL RBC 3.81 (3.30-5.50) M/uL Hgb 11.3 L (12.0-15.0) g/dL Hct 35.8 L (36.0-48.0) % MCV 94 (80-98) fL MCH 30 (27-31) pg MCHC 32 (32-36) % Plt Count 181 (150-400) K/uL Neut % (Auto) 70.4 H (36-66) % Lymph % (Auto) 19.3 L (24-44) % Alpine % (Auto) 9.8 H (2-6) % Eos % (Auto) 0.5 L (2-4) % Baso % (Auto) 0.0 (0-1) % Sodium 143 (140-148) mmol/L Potassium 4.0 (3.6-5.2) mmol/L Chloride 108 (100-108) mmol/L Carbon Dioxide 26 (21-32) mmol/L Anion Gap 8.6 (5.0-14.0) mmol/L BUN 19 H (7-18) mg/dL Creatinine 0.7 (0.6-1.0) mg/dL Est Cr Clr Drug Dosing 83.95 mL/min Estimated GFR (MDRD) > 60 (>60) Glucose 82 (74-106) mg/dL Lactic Acid 0.7 (0.4-2.0) mmol/L Calcium 8.1 L (8.5-10.1) mg/dL Total Bilirubin 0.3 (0.2-1.0) mg/dL AST 28 (15-37) U/L ALT 33 (12-78) U/L Alkaline Phosphatase 150 H D (46-116) U/L Total Protein 5.7 L (6.4-8.2) g/dL Albumin 2.7 L (3.4-5.0) g/dL Globulin 3.0 (2.3-3.5) g/dL Albumin/Globulin Ratio 0.9 L (1.2-2.2) Lipase (73-393) U/L 05/23/21 Range/Units 08:28 WBC (4.5-11.0) K/uL RBC (3.30-5.50) M/uL Hgb (12.0-15.0) g/dL Hct (36.0-48.0) % MCV (80-98) fL MCH (27-31) pg MCHC (32-36) % Plt Count (150-400) K/uL Neut % (Auto) (36-66) % Lymph % (Auto) (24-44) % Alpine % (Auto) (2-6) % Eos % (Auto) (2-4) % Baso % (Auto) (0-1) % Sodium (140-148) mmol/L Potassium (3.6-5.2) mmol/L Chloride (100-108) mmol/L Carbon Dioxide (21-32) mmol/L Anion Gap (5.0-14.0) mmol/L BUN (7-18) mg/dL Creatinine (0.6-1.0) mg/dL Est Cr Clr Drug Dosing mL/min Estimated GFR (MDRD) (>60) Glucose (74-106) mg/dL Lactic Acid (0.4-2.0) mmol/L Calcium (8.5-10.1) mg/dL Total Bilirubin (0.2-1.0) mg/dL AST (15-37) U/L ALT (12-78) U/L Alkaline Phosphatase (46-116) U/L Total Protein (6.4-8.2) g/dL Albumin (3.4-5.0) g/dL Globulin (2.3-3.5) g/dL Albumin/Globulin Ratio (1.2-2.2) Lipase 135 (73-393) U/L Meds: Medications Discontinued Medications Generic Name Dose Route Start Last Admin Trade Name Freq PRN Reason Stop Dose Admin Sodium Chloride 1,000 mls @ 1,000 mls/hr 05/23/21 08:30 05/23/21 08:43 Normal Saline IV 1,000 mls/hr ASDIRECTED ZULMA Administration Sodium Chloride 100 mls @ 3 mls/sec 05/23/21 08:45 05/23/21 09:04 Normal Saline IV 05/23/21 08:46 3 mls/sec ASDIRECTED ZULMA Administration Iopamidol 150 ml 05/23/21 08:37 05/23/21 09:04 Iopamidol 612 Mg/Ml 150 Ml Bottle IV 05/24/21 08:38 150 ml . DIRECTED PRN Administration RADIOLOGY EXAM Pantoprazole Sodium 40 mg 05/23/21 09:32 05/23/21 10:06 Pantoprazole 40 Mg Vial IVPUSH 05/23/21 09:33 40 mg ONETIME ONE Administration Sodium Chloride 10 ml 05/23/21 08:37 05/23/21 09:04 Sodium Chloride 0.9% 10 Ml Sdv FLUSH 05/23/21 08:38 10 ml ONETIME ONE Administration - Re-Assessments/Exams Free Text/Narrative Re-Assessment/Exam: 05/23/21 09:31 Labs all returned reassuring, lactic acid was normal, lipase normal. CT with IV enhancement showed enlarging but stable 05/23/21 10:35 CT with IV enhancement showed the hernias but no acute findings, no evidence of inflammation or incarceration. Reexamination did not change, just mild abdominal tenderness to palpation. I wrote her a note to be off work for the next couple of days so she can stay supine and rest, and she should keep her surgical appointment next Wednesday as scheduled. She can return sooner if worsening such as vomiting, increased pain or fever. Departure - Departure Time of Disposition: 10:16 Disposition: Home, Self-Care 01 Clinical Impression: Abdominal pain Qualifiers: Abdominal location: upper abdomen, unspecified Qualified Code(s): R10.10 - Upper abdominal pain, unspecified - Discharge Information Instructions: Abdominal Pain, Adult, [id number] Referrals: Viktor Sam MD [Primary Care Provider] - Forms: ED Department Discharge Care Plan Goals: Take 20 mg of omeprazole daily through the weekend, and return for her surgery next week as scheduled. Return anytime if worsening especially if you develop fever, increased pain, nausea or vomiting or other concerns. Sepsis Event Note (ED) - Evaluation Sepsis Screening Result: No Definite Risk - Focused Exam Vital Signs: Vital Signs Temp Pulse Resp BP Pulse Ox 05/23/21 07:24 97.3 F 72 16 122/71 98 05/23/21 07:11 97.3 F 72 16 122/71 98
[2021-05-23] MEDS ORDERED: Sodium Chloride 0.9% 1,000 ML IV SCH (08:30)
[2021-05-23] MEDS ORDERED: Iopamidol 612 MG/ML 150 ML Bottle IV PRN (08:37)
[2021-05-23] MEDS ORDERED: Sodium Chloride 0.9% 10 ML SDV FLUSH ONE (08:37)
[2021-05-23] MEDS ORDERED: Sodium Chloride 0.9% 100 ML IV SCH (08:45)
--- NOTE | 2021-05-23 09:22 | CT ---
Abdomen Pelvis w Cont CLINICAL HISTORY: Abdominal pain COMPARISON: September 2020. TECHNIQUE: Transverse scans were obtained from the base of the lungs to the pubic symphysis following oral contrast and IV infusion of contrast.Auto dosage reduction and iterative reconstructiontechniques employed. FINDINGS: The lung bases are clear. The liver some fatty infiltration. The gallbladder has been removed. Patient has had previous bariatric surgery. There is a midline ventral hernia. This is increased in size and length since September 2020. The spleen is enlarged.. The pancreas shows no mass or inflammatory change. The adrenal glands appear normal bilaterally . The kidneys show no mass, stones or hydronephrosis. The ureters have normal course and caliber. The bladder has a normal contour.. The aorta has a normal contour. There is no suspicious retroperitoneal adenopathy. Small intestinal configuration is nonacute. There is moderate retained gas and feces throughout the colon. IMPRESSION: Previous bariatric surgery Enlarging ventral hernia particularly in the mid abdominal region. This contains small bowel and colon. There is no evidence to suggest incarceration. Fatty infiltration of liver Previous cholecystectomy
[2021-05-23] MEDS ORDERED: Pantoprazole 40 MG Vial IVPUSH ONE (09:32)
== END 2021-05-23 10:16 | disposition home or self-care (01) ==
LOC: JP.ED 06:49
DX: R10.12 Left upper quadrant pain (principal); K21.9 Gastro-esophageal reflux disease without esophagitis; I10 Essential (primary) hypertension; E03.9 Hypothyroidism, unspecified; E66.9 Obesity, unspecified; Z68.41 Body mass index [BMI] 40.0-44.9, adult; Z77.22 Contact with and (suspected) exposure to environmental tobacco smoke (acute) (chronic); Z88.2 Allergy status to sulfonamides; Z88.8 Allergy status to other drugs, medicaments and biological substances; Z88.0 Allergy status to penicillin; Z88.5 Allergy status to narcotic agent; Z79.899 Other long term (current) drug therapy
CPT/HCPCS: 36415; 74177; 80053; 83605; 83690; 85025; 96374; 99284; C9113; J7030; Q9967

== ENCOUNTER 2021-05-27 06:46 | Inpatient (IN) | payer OTHER ==
[2021-05-27] MEDS ORDERED: Bupivacaine 0.5% 50 ML MDV ONE (06:50)
[2021-05-27] MEDS ORDERED: Meropenem 500 MG SDV ONE (06:50)
[2021-05-27] MEDS ORDERED: Lidocaine 1% with EPINEPHrine 1:100,000 50 ML MDV ONE (06:50)
[2021-05-27] MEDS ORDERED: Gabapentin 300 MG Cap PO ONE (07:00)
[2021-05-27] MEDS ORDERED: Scopolamine 1.5 MG Transdermal Patch TOP SCH (07:00)
[2021-05-27] MEDS ORDERED: fentaNYL 250 MCG/5 ML SDV ONE ×2 (07:04→10:35)
[2021-05-27] MEDS ORDERED: Glycopyrrolate 0.2 MG/ML 5 ML MDV ONE (07:05)
[2021-05-27] MEDS ORDERED: Succinylcholine 200 MG/10 ML MDV ONE (07:05)
[2021-05-27] MEDS ORDERED: Propofol 200 MG/20 ML SDV ONE (07:05)
[2021-05-27] MEDS ORDERED: Ondansetron 4 MG/2 ML SDV ONE (07:05)
[2021-05-27] MEDS ORDERED: Dexamethasone 4 MG/ML SDV ONE (07:05)
[2021-05-27] MEDS ORDERED: Rocuronium 50 MG/5 ML Vial ONE ×2 (07:05→10:05)
[2021-05-27] MEDS ORDERED: Neostigmine Methylsulfate 1 MG/ML 5 ML Syringe ONE (07:05)
[2021-05-27] MEDS ORDERED: Albuterol/Ipratropium 3.0-0.5 MG/3 ML Neb Soln NEB ONE (07:30)
[2021-05-27] MEDS ORDERED: cefOXitin 2 GM in Sodium Chloride 0.9% 50 ML IV ONE (07:30)
[2021-05-27] MEDS ORDERED: Dextrose 5%-Lactated Ringers 1,000 ML IV SCH (07:30)
[2021-05-27 07:58] LABS: CORONAVIRUS COVID-19 NAA NEGATIVE (NEGATIVE)
[2021-05-27] MEDS ORDERED: Ketamine 500 MG/5 ML MDV IV SCH (09:00)
[2021-05-27] MEDS ORDERED: Ketamine 50 MG in Sodium Chloride 0.9% 49.5 ML IV SCH (09:00)
[2021-05-27] MEDS ORDERED: Lactated Ringers 1,000 ML ONE (09:39)
[2021-05-27] MEDS: HYDROmorphone/Normal Saline 15 MG/30 ML PCA IV PRN (09:44)
[2021-05-27] MEDS ORDERED: Naloxone 0.4 MG/ML SDV IV PRN (10:00)
[2021-05-27] MEDS ORDERED: HYDROmorphone/Normal Saline 15 MG/30 ML PCA IV PRN (10:00)
[2021-05-27] MEDS ORDERED: hydrOXYzine HCL 100 MG/2 ML SDV IM ONE (11:41)
[2021-05-27] MEDS: Dextrose 5%-Lactated Ringers 1,000 ML IV SCH ×2 (12:38→23:08)
[2021-05-27] MEDS ORDERED: Temazepam 15 MG Cap PO PRN (12:43)
[2021-05-27] MEDS ORDERED: ALPRAZolam 0.5 MG Tab PO PRN (12:45)
[2021-05-27] MEDS ORDERED: Acetaminophen 500 MG Tab PO PRN (13:00)
[2021-05-27] MEDS ORDERED: Metoclopramide 10 MG/2 ML SDV IVPUSH PRN (13:00)
[2021-05-27] MEDS ORDERED: Albuterol/Ipratropium 3.0-0.5 MG/3 ML Neb Soln INH PRN (13:00)
[2021-05-27] MEDS ORDERED: Pantoprazole 40 MG Vial IVPUSH SCH (13:00)
[2021-05-27] MEDS ORDERED: diphenhydrAMINE 50 MG/ML SDV IVPUSH PRN (13:00)
[2021-05-27] MEDS ORDERED: Ondansetron 4 MG/2 ML SDV IVPUSH PRN (13:00)
[2021-05-27] MEDS ORDERED: hydrOXYzine HCL 100 MG/2 ML SDV IM PRN (13:00)
[2021-05-27] MEDS ORDERED: Labetalol 20 MG/4 ML Syringe IVPUSH PRN (13:00)
[2021-05-27] MEDS: ARIPiprazole 10 MG Tab PO SCH (14:02)
[2021-05-27] MEDS: Acetaminophen 500 MG Tab PO SCH ×2 (14:02→21:44)
[2021-05-27] MEDS: ceFAZolin 2 GM in Premix Bag 1 BAG IV SCH ×2 (14:02→21:10)
[2021-05-27] MEDS: Citalopram 20 MG Tab PO SCH (14:03)
[2021-05-27] MEDS: Albuterol/Ipratropium 3.0-0.5 MG/3 ML Neb Soln INH SCH ×2 (14:20→21:00)
[2021-05-27] MEDS ORDERED: MVI, Adult with Vitamin K 10 ML, Thiamine 200 MG, Zinc/Copper/Manganese/Selenium 1 ML i... IV SCH ×4 (16:00)
[2021-05-27] MEDS: Montelukast 10 MG Tab PO SCH (21:01)
[2021-05-28] MEDS: Dextrose 5%-Lactated Ringers 1,000 ML IV SCH (04:54)
[2021-05-28] MEDS: Acetaminophen 500 MG Tab PO SCH ×3 (06:07→21:12)
[2021-05-28] MEDS: ceFAZolin 2 GM in Premix Bag 1 BAG IV SCH ×3 (06:08→21:14)
[2021-05-28] MEDS ORDERED: Dextrose 5%-Lactated Ringers 1,000 ML IV SCH (07:00)
[2021-05-28] MEDS: Albuterol/Ipratropium 3.0-0.5 MG/3 ML Neb Soln INH SCH ×4 (07:15→21:12)
[2021-05-28] MEDS: Citalopram 20 MG Tab PO SCH (08:49)
[2021-05-28] MEDS: SCOPOLAMINE PATCH CHECK TOP SCH (08:49)
[2021-05-28] MEDS: Levothyroxine 100 MCG Tab PO SCH (08:49)
[2021-05-28] MEDS: ARIPiprazole 10 MG Tab PO SCH (08:49)
[2021-05-28] MEDS: Gabapentin 300 MG Cap PO SCH (08:49)
[2021-05-28] MEDS: Celecoxib 200 MG Cap PO SCH ×2 (08:49→21:12)
[2021-05-28] MEDS: Magnesium Sulfate/Water 2 GM/50 ML BAG IV SCH ×3 (08:50→21:09)
[2021-05-28] MEDS: Sodium Ferric Gluconate Cmplex 250 MG in Sodium Chloride 0.9% 100 ML IV SCH (10:10)
--- NOTE | 2021-05-28 12:23 | PN ---
DATE OF SERVICE: 05/28/2021 SUBJECTIVE: Shannan is postop day 1. Oral intake 1940, output 2515 via Quick catheter. States her pain is controlled with the FLEET MANAGER. She has been up twice, sitting in the chair and ambulated a short distance using her incentive spirometer. She has no questions or concerns. OBJECTIVE: GENERAL: Shannan Hyde is a pleasant 50-year-old female. VITAL SIGNS: TPR is 97.2, 65, 18. Blood pressure 108/68. HEENT: Negative. NECK: Supple. HEART: Regular rate and rhythm. LUNGS: Clear. ABDOMEN: Aquacel dressing is dry and intact. Abdominal binder is on. EXTREMITIES: Without peripheral edema. ASSESSMENT: Exploratory laparotomy with lysis of adhesions: 1. Repair of recurrent incarcerated incisional hernia with mesh. 2. Excision of peritoneal nodule, 4 cm. 3. Herniography, hepatography lobe of the liver. 4. Placement of Vicryl mesh. POSTOPERATIVE DIAGNOSES: 1. Recurrent incarcerated incisional hernia. 2. Peritoneal nodule underlining abdominal wall. 3. Area of liver status post takedown of extensive adhesions. Date of procedure 05/27/2021. Surgeon: Tiago Perez MD. PLAN: 1. Discontinue Quick catheter. 2. Decrease IV to 100 mL per hour. 3. Step 2 gastric bypass diet without cereal. 4. Ferric gluconate 250 mg IV today and repeat in a.m. for total of 2 doses. 5. Magnesium 2 g IV q.6 hours x48 hours. 6. Continue use of incentive spirometer and ambulation. 7. We will evaluate p.r.n. or in a.m. Gabriela Moreland PA-C /[id number]
[2021-05-28] MEDS: Pantoprazole 40 MG Delayed-Release Granules 1 Packet PO SCH (15:32)
[2021-05-28] MEDS ORDERED: MVI, Adult with Vitamin K 10 ML, Thiamine 200 MG, Zinc/Copper/Manganese/Selenium 1 ML i... IV SCH ×4 (16:00)
[2021-05-28] MEDS: Montelukast 10 MG Tab PO SCH (21:12)
[2021-05-29] MEDS: Magnesium Sulfate/Water 2 GM/50 ML BAG IV SCH ×4 (02:35→20:13)
[2021-05-29] MEDS: HYDROmorphone/Normal Saline 15 MG/30 ML PCA IV PRN (05:39)
[2021-05-29] MEDS: Acetaminophen 500 MG Tab PO SCH ×3 (05:42→21:05)
[2021-05-29] MEDS: ceFAZolin 2 GM in Premix Bag 1 BAG IV SCH (05:42)
[2021-05-29] MEDS: Albuterol/Ipratropium 3.0-0.5 MG/3 ML Neb Soln INH SCH ×4 (07:00→21:04)
[2021-05-29] MEDS: Levothyroxine 100 MCG Tab PO SCH (07:45)
[2021-05-29] MEDS: Cyclobenzaprine 10 MG Tab PO PRN ×2 (08:37→18:26)
[2021-05-29] MEDS: oxyCODONE 5 MG Tab PO PRN ×4 (08:37→23:31)
[2021-05-29] MEDS: Gabapentin 300 MG Cap PO SCH (08:37)
[2021-05-29] MEDS: Bisacodyl 5 MG Tab PO SCH ×2 (08:37→21:05)
[2021-05-29] MEDS: Docusate Sodium 100 MG Cap PO SCH ×2 (08:37→21:05)
[2021-05-29] MEDS: SCOPOLAMINE PATCH CHECK TOP SCH (08:38)
[2021-05-29] MEDS: ARIPiprazole 10 MG Tab PO SCH (08:39)
[2021-05-29] MEDS: Citalopram 20 MG Tab PO SCH (08:39)
[2021-05-29] MEDS: Celecoxib 200 MG Cap PO SCH ×2 (08:39→21:05)
[2021-05-29] MEDS ORDERED: Cyanocobalamin (Vitamin B12) 1,000 MCG/ML SDV IM ONE (09:00)
--- NOTE | 2021-05-29 09:14 | PN ---
DATE OF SERVICE: 05/29/2021 SUBJECTIVE: Shannan states her pain is controlled. She has been up, ambulating. Vital signs have been stable. She has been afebrile. Oral intake 2310. Urine output 875. She is passing gas but has not had a bowel movement. OBJECTIVE: GENERAL: Shannan Hyde is a pleasant 50-year-old female. She is alert and orientated. VITAL SIGNS: TPR 97.8, 74, 16, blood pressure 104/57. HEENT: Negative. NECK: Supple. HEART: Regular rate and rhythm. LUNGS: Clear. ABDOMEN: Dressings dry and intact. Abdominal binder is on. EXTREMITIES: Without peripheral edema. ASSESSMENT: 1. Exploratory laparotomy with lysis of adhesions. 2. Repair of recurrent incarcerated incisional hernia with mesh. 3. Excision of peritoneal nodule 4 cm. 4. Hepatography lobe of the liver. 5. Placement of Vicryl mesh. POSTOPERATIVE DIAGNOSES: 1. Recurrent incarcerated incisional hernia. 2. Peritoneal nodule underlying abdominal wall. 3. Area of liver deserosalization after takedown of extensive adhesions. Date of procedure: 05/27/2021. Surgeon: Tiago Perez MD. PLAN: 1. Saline lock IV. 2. Discontinue DEVOPS ENGINEER and continuous pulse ox. 3. Oxycodone 5 mg q.4 hours p.r.n. pain. 4. Step 3 gastric bypass diet. 5. Dulcolax 10 mg tablets b.i.d. oral scheduled. 6. Colace 100 mg p.o. b.i.d. 7. We will evaluate p.r.n. or in a.m. Gabriela Moreland PA-C /[id number]
[2021-05-29] MEDS: Sodium Ferric Gluconate Cmplex 250 MG in Sodium Chloride 0.9% 100 ML IV SCH (11:30)
[2021-05-29] MEDS: Pantoprazole 40 MG Delayed-Release Granules 1 Packet PO SCH (17:26)
[2021-05-29] MEDS: Montelukast 10 MG Tab PO SCH (21:05)
[2021-05-30] MEDS: oxyCODONE 5 MG Tab PO PRN ×2 (03:49→08:32)
[2021-05-30] MEDS: Acetaminophen 500 MG Tab PO SCH (05:58)
[2021-05-30] MEDS: Albuterol/Ipratropium 3.0-0.5 MG/3 ML Neb Soln INH SCH ×2 (07:05→10:42)
[2021-05-30] MEDS: Levothyroxine 100 MCG Tab PO SCH (07:50)
[2021-05-30] MEDS: ARIPiprazole 10 MG Tab PO SCH (09:15)
[2021-05-30] MEDS: Citalopram 20 MG Tab PO SCH (09:15)
[2021-05-30] MEDS: Celecoxib 200 MG Cap PO SCH (09:15)
[2021-05-30] MEDS: Gabapentin 300 MG Cap PO SCH (09:15)
[2021-05-30 10:08] VITALS: BP 107/50; PULSE 75
[2021-05-30] MEDS: Bisacodyl 5 MG Tab PO SCH (10:47)
[2021-05-30] MEDS: Docusate Sodium 100 MG Cap PO SCH (10:47)
--- NOTE | 2021-05-30 14:58 | DISCH ---
ADMISSION DIAGNOSES: Incisional hernia, status post Itzel-en-Y gastric bypass surgery, chronic low back pain, unspecified surgical malabsorption, B12 deficiency, general anxiety disorder, and borderline personality disorder. DISCHARGE DIAGNOSES: 1. Exploratory laparotomy with lysis of adhesions. 2. Repair of recurrent incarcerated incisional hernia with mesh. 3. Excision of peritoneal nodule 4 cm. 4. Hepatography lobe of the liver. 5. Placement of Vicryl mesh. POSTOPERATIVE DIAGNOSES: 1. Recurrent incarcerated incisional hernia. 2. Peritoneal nodule underlying the abdominal wall. 3. Area of liver deserosalization post takedown of extensive adhesions. Date of procedure: 05/27/2021. Surgeon: Tiago Perez MD. HISTORY: Shannan is a pleasant 50-year-old female with a large recurrent incisional hernia. After preoperative evaluation and discussion of possible risks and possible complications, she wished to proceed with surgical procedure. HOSPITAL COURSE: Shannan had her surgery on 05/27/2021. She had no operative complications. On postoperative day #1, her IV was decreased. She was started on a step 2 gastric bypass diet. Quick catheter was discontinued. Her vital signs were stable. On postoperative day #2, she was changed to oral pain medication, given a step 3 gastric bypass diet, and bowel stimulation. On postop day #3, she was able to be discharged to home without any complications. PHYSICAL EXAMINATION: GENERAL: Shannan is a pleasant 50-year-old female. VITAL SIGNS: Height 5 feet 4 inches, weight is 250 pounds, BMI is 42.9. TPR 97.8, 75, 18, blood pressure 107/50. HEENT: Negative. NECK: Supple. HEART: Regular rate and rhythm. LUNGS: Clear. ABDOMEN: Aquacel dressing is on. Abdominal binder is on. EXTREMITIES: Without peripheral edema. DISPOSITION: Discharged to home. CONDITION: Stable and improving. FOLLOW UP APPOINTMENTS: With Gabriela Moreland PA-C, on 06/06/2021 at 9 a.m. HOME MEDICATIONS: 1. Celebrex 200 mg p.o. b.i.d., #28. 2. Oxycodone 5 mg q.4 hours p.r.n. severe pain, #12. 3. Acetaminophen 1000 mg every 6 hours p.r.n. pain. 4. She is to resume her home medications. DIET: Step 3 gastric bypass diet. Drink 8 to 10 glasses of water a day. ACTIVITY: No lifting greater than 10 pounds for 6 weeks. OTHER ACTIVITY: Walk 6 times daily inside your home. Driving: Do not drive for 1 week. DISCHARGE INSTRUCTIONS: Shower/bathing: May shower. Keep operative site clean and dry. SPECIAL INSTRUCTION: 1. Wear abdominal binder for 6 to 8 weeks if tolerated. 2. Wear rolled up gauze over hernia site for 2 weeks. 3. Remove Aquacel dressing on 06/02/2021. 4. Notify provider if any fever, increased pain, swelling, redness, drainage, nausea, or vomiting. OTHER INSTRUCTION: Use incentive spirometer 10 times every hour while awake for 1 week. Take off Aquacel dressing in 3 days, 06/02/2021. /[id number]
--- NOTE | 2021-06-04 12:02 | OR ---
DATE OF PROCEDURE: 05/27/2021 SURGEON: Tiago Perez MD PREOPERATIVE DIAGNOSIS: Recurrent incisional hernia. POSTOPERATIVE DIAGNOSES: 1. Recurrent incarcerated incisional hernia. 2. Peritoneal nodule underlying abdominal wall. 3. Area of liver deserosalization status post takedown of densely adherent adhesions. OPERATIVE PROCEDURE: 1. Exploratory laparotomy with lysis of extensive adhesions: a. Repair of recurrent incarcerated incisional hernia with mesh (87350, [id number]). b. Excision of peritoneal nodule, underlying abdominal wall (97471). c. Hepatorrhaphy involving deserosalized area of quadrate lobe of liver (65017). d. Placement of Vicryl mesh to limit recurrent adhesion formation, pelvic and abdominal wall and underlying viscera (63442). ANESTHESIA: General. CHOCOLATE REFINING ROLLER: Gabriela Moreland PA-C. INDICATIONS FOR PROCEDURE: This is a 50-year-old female presenting with a large recurrent incisional hernia in the upper abdomen. Plan is to proceed with repair of this with open approach with mesh technique. Potential risks of the procedure including bleeding, infection, injury to underlying viscera, problems with the hernia recurring or the mesh becoming infected were all reviewed along with the remote possibility of cardiopulmonary, septic, or hemorrhagic complications leading to and the patient wishes to proceed. DETAILS OF PROCEDURE: The patient was taken to the operating room, placed in a supine position. After general endotracheal anesthesia was induced, the abdomen was prepped and draped. Previous upper midline incision was then reused and carried down through the skin and subcutaneous tissue and down onto the hernia sac which at this point was in the epigastrium. The hernia sac was dissected circumferentially down to fascial edges, where it was opened, contained some incarcerated omentum and transverse colon which was dissected free from the hernia sac. At this point, the hernia sac then excised. Further dissection inferiorly showed another quite large hernia sac just above the umbilicus, and this area then similarly freed up some of the adherent omentum and in this case small bowel. Once this was freed up, the hernia sac was resected as well, and at this point, all the hernia sac had been delivered from the field. During the course of the initial dissection between the 2 hernias sacs, there was a 4 cm elongated peritoneal nodule of uncertain nature and this was excised, sent as a separate specimen. Also, during the course of the dissection in the upper abdomen freeing the abdominal wall before the mesh placement, there was an area of abdominal wall which essentially fused with the quadrate lobe of the liver. This was dissected free. There was significant deserosalization and bleeding from that area was then controlled with a series of 0 Vicryl sutures. Once this was controlled, there was no further bleeding and no bile leaks present at that level. At this point, the abdominal wall was mapped out, and based on measurements, a Ventrio ST hernia patch measuring 27.4 x 34.9 cm was selected. At 5 cm intervals around its circumference, 2-0 Vicryl sutures were placed on the polypropylene side of the mesh and then stab wounds were then placed where those sutures being pulled up eventually fixing it well away from the edges of the fascial defect. At those premarked locations, small stab wounds were made. The upper half of the mesh was then fixed with suture passer pulling the mesh up into position. Underlying this, then a 12 inch square of Vicryl mesh was selected and placed underneath the mesh and down towards the pelvic wall as well adjacent abdominal wall and pelvis away from the underlying viscera to limit recurrent adhesion formation. Remaining sutures were then pulled up through the suture passer, thus fixing the mesh well away from the edges, and the underside of the mesh was then affixed circumferentially with titanium tacking screws as well, and at that point, the mesh placement appeared to be satisfactory. Area was irrigated with antibiotic-containing saline once again. Bilateral transverse abdominis plane blocks were then placed prior to the mesh being positioned and the midline fascia then approximated with #2 Vicryl stitch. Fascia was anesthetized with 1% lidocaine mixed with Marcaine as well and the subcutaneous tissue closed with 3 layers of 3-0 and 4-0 Vicryl stitch and the skin with imelda. Dressing was applied. The patient was taken to the recovery room in satisfactory condition. There were no evident complications. Physician accounting assistant, Gabriela Moreland, played an essential role in assisting in this case, helping to position the patient, retract structures as needed, as well as suturing and cutting sutures when indicated. Her presence improved patient safety and decreased operative time. Tiago Perez MD /[id number]
== END 2021-05-30 10:35 | disposition home or self-care (01) | DRG 354 ==
LOC: JP.SDS 06:46 → EDSTATUS 08:15 → JP.SDSSCHI 11:45 → JP.MS 13:15
PROVIDERS: ADMIT Surgery; ATTEND Surgery
PROC: 0WUF0JZ Supplement Abdominal Wall with Synthetic Substitute, Open Approach (ICD-10-PCS; principal; 2021-05-27)
PROC: 0DBW0ZZ Excision of Peritoneum, Open Approach (ICD-10-PCS; 2021-05-27)
PROC: 0FQ20ZZ Repair Left Lobe Liver, Open Approach (ICD-10-PCS; 2021-05-27)
PROC: 3E0M05Z Introduction of Adhesion Barrier into Peritoneal Cavity, Open Approach (ICD-10-PCS; 2021-05-27)
DX: K43.0 Incisional hernia with obstruction, without gangrene (principal); K91.2 Postsurgical malabsorption, not elsewhere classified; Z68.41 Body mass index [BMI] 40.0-44.9, adult; K66.8 Other specified disorders of peritoneum; M54.5 Low back pain; G89.29 Other chronic pain; F41.1 Generalized anxiety disorder; F60.3 Borderline personality disorder; E03.9 Hypothyroidism, unspecified; E53.8 Deficiency of other specified B group vitamins; E66.01 Morbid (severe) obesity due to excess calories; Z20.822 Contact with and (suspected) exposure to COVID-19; E55.9 Vitamin D deficiency, unspecified; G47.30 Sleep apnea, unspecified; F33.41 Major depressive disorder, recurrent, in partial remission; R76.8 Other specified abnormal immunological findings in serum; R16.0 Hepatomegaly, not elsewhere classified; Z88.5 Allergy status to narcotic agent; Z88.2 Allergy status to sulfonamides; Z88.1 Allergy status to other antibiotic agents; Z84.0 Family history of diseases of the skin and subcutaneous tissue; Z82.61 Family history of arthritis
CPT/HCPCS: 0241U; 36415; 80053; 82728; 83735; 83880; 84100; 84443; 85025; 88302; 88305; 94640; 94762; A9270-GY; C1713; C1781; C9113; J0171; J0330; J0690; J0694; J1100; J1170; J2020; J2185; J2405; J2704; J2710; J2795; J2916; J3010; J3410; J3411; J3420; J3475; J3490; J7120; J7121; J7620-GY

== ENCOUNTER 2024-11-03 18:34 | Emergency (ER) | payer MEDICAID ==
[2024-11-03 19:53] LABS: EOSINOPHILS PERCENT AUTO 0.2 % (0.0-5.4); HEMOGLOBIN 11.6 g/dL (11.2-15.5); IMMATURE GRAN PERCENT AUTO 0.4 % (0.0-0.7); LYMPHOCYTES ABSOLUTE AUTO 1.35 K/uL (0.8-3.3); LYMPHOCYTES PERCENT AUTO 24.7 % (11.4-47.7); MEAN CORPUSCULAR HEMOGLOBIN 32.1 pg (31.6-35.5); MEAN CORPUSCULAR HGB CONC 33.1 g/dL (31.6-35.5); MONOCYTES ABSOLUTE AUTO 0.37 K/uL (0.20-0.90); MONOCYTES PERCENT AUTO 6.8 % (3.3-12.6); NEUTROPHILS ABSOLUTE AUTO 3.72 K/uL (1.0-7.6); NEUTROPHILS PERCENT AUTO 67.9 % (40.0-78.1); PLATELET COUNT,PLT 210 K/uL (130-375); RED BLOOD CELL COUNT 3.61 M/uL (3.77-5.24); WHITE BLOOD CELL COUNT,WBC 5.5 K/uL (3.2-11.0)
[2024-11-03 19:55] LABS: EOSINOPHILS ABSOLUTE AUTO 0.01 K/uL (0.00-0.40); IMMATURE GRAN ABSOLUTE AUTO 0.02 K/uL (0.00-0.23)
[2024-11-03 20:17] LABS: A/G RATIO 0.8 (1.2-2.2); ALBUMIN 2.5 g/dL (3.4-5.0); BILIRUBIN DIRECT 0.52 mg/dL (0.0-0.2); BILIRUBIN INDIRECT 0.48; CALCIUM 7.7 mg/dL (8.5-10.1); CREATININE 1.1 mg/dL (0.6-1.0); EST CRCL DRUG DOSING (CG) 51.07 mL/min; PROTEIN TOTAL,TP 5.7 g/dL (6.4-8.2)
[2024-11-03] MEDS: Potassium Chloride 20 MEQ Tab.ER PO ONE (20:34)
[2024-11-03 20:55] VITALS: BP 147/81; PULSE 76
== END 2024-11-03 20:50 | disposition home or self-care (01) ==
LOC: JP.ED 18:34
DX: R60.0 Localized edema (principal); E87.6 Hypokalemia; I10 Essential (primary) hypertension; J45.909 Unspecified asthma, uncomplicated; E03.9 Hypothyroidism, unspecified; E66.9 Obesity, unspecified; Z90.49 Acquired absence of other specified parts of digestive tract; Z90.710 Acquired absence of both cervix and uterus; Z88.0 Allergy status to penicillin; Z88.5 Allergy status to narcotic agent; Z88.2 Allergy status to sulfonamides; Z88.8 Allergy status to other drugs, medicaments and biological substances; Z79.51 Long term (current) use of inhaled steroids; Z79.890 Hormone replacement therapy; Z79.899 Other long term (current) drug therapy; Z68.37 Body mass index [BMI] 37.0-37.9, adult
CPT/HCPCS: 36415; 70450; 80048; 80076; 85025; 99284; A9270

== ENCOUNTER 2024-11-06 12:31 | Emergency (ER) | payer MEDICAID ==
[2024-11-06 13:31] LABS: HEMATOCRIT 38.1 % (34.3-46.0); HEMOGLOBIN 12.7 g/dL (11.2-15.5); IMMATURE GRAN PERCENT AUTO 0.4 % (0.0-0.7); LYMPHOCYTES ABSOLUTE AUTO 1.14 K/uL (0.8-3.3); LYMPHOCYTES PERCENT AUTO 20.9 % (11.4-47.7); MEAN CORPUSCULAR HGB CONC 33.3 g/dL (31.6-35.5); MONOCYTES ABSOLUTE AUTO 0.28 K/uL (0.20-0.90); MONOCYTES PERCENT AUTO 5.1 % (3.3-12.6); NEUTROPHILS ABSOLUTE AUTO 4.01 K/uL (1.0-7.6); NEUTROPHILS PERCENT AUTO 73.6 % (40.0-78.1); PLATELET COUNT,PLT 244 K/uL (130-375); RED BLOOD CELL COUNT 3.97 M/uL (3.77-5.24); WHITE BLOOD CELL COUNT,WBC 5.5 K/uL (3.2-11.0)
[2024-11-06 13:35] LABS: IMMATURE GRAN ABSOLUTE AUTO 0.02 K/uL (0.00-0.23)
[2024-11-06 13:53] LABS: A/G RATIO 0.8 (1.2-2.2); ALANINE AMINOTRANSFERASE,ALT 46 U/L (12-78); ALBUMIN 2.5 g/dL (3.4-5.0); ALKALINE PHOSPHATASE 162 U/L (46-116); ASPARTATE AMNIOTRANSFERASE,AST 36 U/L (15-37); BLOOD UREA NITROGEN,BUN 15 mg/dL (7-18); CALCIUM 7.9 mg/dL (8.5-10.1); CARBON DIOXIDE,CO2 28 mmol/L (21-32); CHLORIDE,CL 103 mmol/L (100-108); CREATININE 1.2 mg/dL (0.6-1.0); EST CRCL DRUG DOSING (CG) 46.82 mL/min; ESTIMATED GFR 54 mL/min (>60); GLUCOSE RANDOM 89 mg/dL (74-106); POTASSIUM,K 3.4 mmol/L (3.6-5.2); PROTEIN TOTAL,TP 5.8 g/dL (6.4-8.2); SODIUM,NA 138 mmol/L (140-148)
[2024-11-06 13:55] LABS: ANION GAP 10.4 mmol/L (5.0-14.0)
[2024-11-06 14:16] LABS: APPEARANCE,URINE SLIGHTLY CLOUDY (CLEAR); BILIRUBIN,URINE NEGATIVE (NEGATIVE); COLOR,URINE YELLOW (YELLOW); GLUCOSE,URINE NEGATIVE (NEGATIVE); KETONES,URINE NEGATIVE (NEGATIVE); LEUKOCYTE ESTERASE,URINE TRACE (NEGATIVE); NITRITE,URINE POSITIVE (NEGATIVE); OCCULT BLOOD,URINE NEGATIVE (NEGATIVE); PROTEIN,URINE NEGATIVE (NEGATIVE); UROBILINOGEN,URINE 0.2 EU/dL (0.2-1.0)
[2024-11-06 14:19] LABS: AMORPHOUS SEDIMENT,URINE NOT SEEN; BACTERIA,URINE MANY; EPITHELIAL CELLS,URINE FEW; MUCUS,URINE NOT SEEN; RBC,URINE 0-5 (0-5); WBC,URINE 0-5 (0-5)
[2024-11-06 15:07] VITALS: BP 118/72; PULSE 75
== END 2024-11-06 15:23 | disposition home or self-care (01) ==
LOC: JP.ED 12:31
DX: E86.0 Dehydration (principal); N39.0 Urinary tract infection, site not specified; I10 Essential (primary) hypertension; E03.9 Hypothyroidism, unspecified; E66.9 Obesity, unspecified; Z98.84 Bariatric surgery status; Z90.49 Acquired absence of other specified parts of digestive tract; Z90.710 Acquired absence of both cervix and uterus; Z88.0 Allergy status to penicillin; Z88.5 Allergy status to narcotic agent; Z88.2 Allergy status to sulfonamides; Z88.8 Allergy status to other drugs, medicaments and biological substances; Z79.51 Long term (current) use of inhaled steroids; Z79.890 Hormone replacement therapy; Z79.899 Other long term (current) drug therapy; Z68.34 Body mass index [BMI] 34.0-34.9, adult
CPT/HCPCS: 36415; 80053; 81001; 83735; 85025; 87086; 87088; 87186; 93005; 99284